=== PATIENT | female | born 1955 | race Caucasian/White ===

== ENCOUNTER 2017-10-13 15:30 | Emergency (ER) | payer MEDICARE, MEDICAID ==
[~2017-10-13] VITALS: Ht 167.6 cm; Wt 113.0 kg
[~2017-10-13 15:30] MED LIST: ALBU2.5V13 NEB; ASPI-611 PO; FERR325T28 PO; FESO8TAB PO; FURO40TA4 PO; IBUP-1986 PO; INSU100C10 SQ; LANTUS SQ; MAGN400T6 PO; OMEP-50 PO; POTA10TA15 PO; PRAM0.253 PO; PREG100C PO; QUET25TA34 PO; SERT100T10 PO; SIMV20TA5 PO; TRAZ-143 PO; VALS80TA2 PO; VALS80TA31 PO
[2017-10-13 16:41] VITALS: BP 132/61
[2017-10-13] MEDS ORDERED: CEPH500C5 PO (16:48)
[2017-10-13] MEDS ORDERED: SULF1TAB49 PO (16:48)
[2017-10-13] MEDS ORDERED: cephalexin 250mg capsule PO ONE (16:50)
[2017-10-13] MEDS ORDERED: sulfamethoxazole/trimethoprim DS (800/160mg) tablet PO ONE (16:50)
== END 2017-10-13 17:17 | disposition home or self-care (01) ==
LOC: ER 15:31
DX: L03.115 Cellulitis of right lower limb (principal); I10 Essential (primary) hypertension; E11.9 Type 2 diabetes mellitus without complications; F12.10 Cannabis abuse, uncomplicated; Z90.710 Acquired absence of both cervix and uterus; Z79.4 Long term (current) use of insulin; Z79.899 Other long term (current) drug therapy; Z79.82 Long term (current) use of aspirin
CPT/HCPCS: 93970; 99284

== ENCOUNTER 2018-07-01 10:35 | Emergency (ER) | payer MEDICARE, MEDICAID ==
[~2018-07-01] VITALS: Ht 167.6 cm; Wt 126.0 kg
[~2018-07-01 10:35] MED LIST changes: +CEPH500C5 PO; -TRAZ-143 PO; +TRAZ-218 PO; -VALS80TA31 PO; +VALS80TA32 PO
[2018-07-01 12:00] LABS: ALANINE AMINOTRANSFERASE 26 U/L (12-78); ALBUMIN 2.9 G/DL (3.4-5.0); ALBUMIN/GLOBULIN RATIO 0.8 (1.1-1.5); ALKALINE PHOSPHATASE 108 IU/L (46-116); ANION GAP 7 (8-16); ASPARTATE AMINO TRANSFERASE 29 U/L (10-37); BLOOD UREA NITROGEN 16 MG/DL (7-18); BUN/CREATININE RATIO 9.8 (6.6-38.0); CALCIUM 8.4 MG/DL (8.5-10.1); CHLORIDE 106 MMOL/L (99-107); CREATININE 1.63 MG/DL (0.40-0.90); GLUCOSE 132 MG/DL (70-104); POTASSIUM 3.9 MMOL/L (3.5-5.1); SODIUM 143 MMOL/L (135-145); TOTAL CARBON DIOXIDE 30.1 MMOL/L (24-32); TOTAL PROTEIN 6.6 G/DL (6.4-8.2); eGFR 32 ML/MIN
[2018-07-01 12:55] VITALS: BP 152/79
== END 2018-07-01 12:50 | disposition home or self-care (01) ==
LOC: ER 10:46
DX: I10 Essential (primary) hypertension (principal); I25.2 Old myocardial infarction; E11.9 Type 2 diabetes mellitus without complications; F12.90 Cannabis use, unspecified, uncomplicated; Z90.710 Acquired absence of both cervix and uterus; Z98.890 Other specified postprocedural states; Z91.040 Latex allergy status; Z79.1 Long term (current) use of non-steroidal anti-inflammatories (NSAID); Z79.4 Long term (current) use of insulin; Z79.899 Other long term (current) drug therapy; E66.01 Morbid (severe) obesity due to excess calories
CPT/HCPCS: 36415; 80053; 84484; 93005; 99284

== ENCOUNTER 2018-09-18 11:27 | Emergency (ER) | payer MEDICARE, MEDICAID ==
[~2018-09-18] VITALS: Ht 165.1 cm; Wt 134.0 kg
[2018-09-18 12:02] LABS: BASOPHILS # (AUTO) 0.1 X10'3 (0-0.2); BASOPHILS % (AUTO) 0.9 % (0-1); EOSINOPHILS # (AUTO) 0.2 X10'3 (0-0.9); EOSINOPHILS % (AUTO) 2.1 % (0-6); HEMATOCRIT 35.2 % (35.0-45.0); HEMOGLOBIN 12.2 g/dl (12.0-16.0); LYMPHOCYTES # (AUTO) 1.4 X10'3 (1.1-4.8); LYMPHOCYTES % (AUTO) 18.3 % (21-51); MEAN CORPUSCULAR HEMOGLOBIN 30.8 PG (27.0-31.0); MEAN CORPUSCULAR HGB CONC 34.6 g/dL (33.0-36.5); MEAN PLATELET VOLUME 8.7 FL (7.4-10.4); MONOCYTES # (AUTO) 0.4 X10'3 (0-0.9); MONOCYTES % (AUTO) 4.7 % (2-12); NEUTROPHILS # (AUTO) 5.6 X10'3 (1.8-7.7); PLATELET COUNT 176 X10'3 (140-440); RED BLOOD COUNT 3.95 X10'6 (4.20-5.60); RED CELL DISTRIBUTION WIDTH 13.8 % (11.5-14.5); WHITE BLOOD COUNT 7.5 X10'3 (4.5-11.0)
[2018-09-18 12:14] LABS: ALANINE AMINOTRANSFERASE 19 U/L (12-78); ALBUMIN 2.8 G/DL (3.4-5.0); ALBUMIN/GLOBULIN RATIO 0.7 (1.1-1.5); ALKALINE PHOSPHATASE 93 IU/L (46-116); ANION GAP 3 (8-16); ASPARTATE AMINO TRANSFERASE 28 U/L (10-37); BLOOD UREA NITROGEN 17 MG/DL (7-18); BUN/CREATININE RATIO 9.8 (6.6-38.0); CALCIUM 8.8 MG/DL (8.5-10.1); CHLORIDE 110 MMOL/L (99-107); CREATININE 1.74 MG/DL (0.40-0.90); GLUCOSE 84 MG/DL (70-104); POTASSIUM 3.8 MMOL/L (3.5-5.1); SODIUM 144 MMOL/L (135-145); TOTAL PROTEIN 6.6 G/DL (6.4-8.2); eGFR 30 ML/MIN
[2018-09-18 12:33] LABS: INR 1.1 INR; PROTHROMBIN TIME 11.3 SECONDS (9.0-12.0)
[2018-09-18] MEDS ORDERED: morphine 4 MG/ML inj SYRINge IV PRN (12:55)
[2018-09-18] MEDS ORDERED: ondansetron/PF 4mg/2ml inj IV ONE (12:55)
[2018-09-18] MEDS ORDERED: normal saline 1000ML IV soln IVB ONE (12:55)
[2018-09-18 13:11] LABS: URINE HCG NEGATIVE (NEG)
[2018-09-18 13:14] LABS: CLARITY,URINE CLEAR (Clear); COLOR,URINE YELLOW (Yellow); GLUCOSE, URINE NEGATIVE (Neg); KETONES,URINE NEGATIVE (Neg); LEUKOCYTE ESTERASE ,URINE NEGATIVE (Neg); NITRITES, URINE NEGATIVE (Neg); OCCULT BLOOD,URINE MODERATE (Neg); PROTEIN,URINE 100 mg/dl (Neg); UROBILINOGEN,URINE 0.2 E.U/dL (0.2-1.0)
[2018-09-18 13:32] LABS: UA COLLECTION TYPE CLN CATCH MIDSTREAM
[2018-09-18 13:33] LABS: RBC,URINE 0-2 /HPF (0-2); WBC,URINE 0-4 /HPF (0-4)
[2018-09-18 13:34] LABS: BACTERIA,URINE FEW /HPF (Neg); SQUAMOUS EPITHELIAL CELL,UR FEW /LPF (FEW)
--- NOTE | 2018-09-18 13:47 | NUR ---
Spoke with Dr. Wilburn regarding 1L NS fluid bolus ordered for patient due to CT abd/pelvis indicating that patient had increased fluid in abd cavity. He stated to administer 250 mL bolus NS IV now, not the full 1 L NS.
[2018-09-18] MEDS ORDERED: LIDOcaine 1% w/epiNEPHrine 1:200,000 30ml vial IM ONE (14:10)
[2018-09-18] MEDS ORDERED: SPIR50TA5 PO (14:44)
[2018-09-18] MEDS ORDERED: HYDR-3965 PO (14:47)
[2018-09-18 15:15] VITALS: BP 139/68
[2018-09-18 15:51] LABS: BF MESOTHELIAL CELLS FEW; BF RBC COUNT 111 /CU MM; BF WBC COUNT 149 /CU MM (0-1000); BFAPPEAR HAZY; BFCOLOR YELLOW; BFVOLUME 9 ML; LYMPHOCYTES,BODY FLUID 69 %; MONOCYTES,BODY FLUID 14 %; NEUTROPHILS,BODY FLUID 17 %
== END 2018-09-18 15:18 | disposition home or self-care (01) ==
LOC: ER 11:27
DX: R18.8 Other ascites (principal); K74.60 Unspecified cirrhosis of liver; I10 Essential (primary) hypertension; J44.9 Chronic obstructive pulmonary disease, unspecified; E11.9 Type 2 diabetes mellitus without complications; F12.90 Cannabis use, unspecified, uncomplicated; Z90.710 Acquired absence of both cervix and uterus; Z91.040 Latex allergy status; Z79.82 Long term (current) use of aspirin; Z79.4 Long term (current) use of insulin; Z79.899 Other long term (current) drug therapy
CPT/HCPCS: 36415; 74176; 80053; 81001; 81025; 85025; 85610; 89051; 96374; 96375; 99284; J2270; J2405; J3490; J7030

== ENCOUNTER 2019-01-03 11:29 | Emergency (ER) | payer MEDICARE, MEDICAID ==
[~2019-01-03] VITALS: Ht 167.6 cm; Wt 124.8 kg
[~2019-01-03 11:29] MED LIST changes: +AMLO10TA PO; +CARI3CAP PO; -CEPH500C5 PO; +CLON0.5T12 PO; +CLOT15CR5 TOP; -FESO8TAB PO; +FLUT100D2 INH; +GABA-532 PO; +INSU100I31 SQ; +LAMO100T89 PO; -LANTUS SQ; +LOSA100T57 PO; +MAGN400T28 PO; -MAGN400T6 PO; +MUPI22OI30 TP; +PRAM0.252 PO; -PRAM0.253 PO; -PREG100C PO; -QUET25TA34 PO; +SPIR100T5 PO; -TRAZ-218 PO; +TRAZ-251 PO; -VALS80TA2 PO; -VALS80TA32 PO
--- NOTE | 2019-01-03 11:38 | NUR ---
REVIEWED PT MEDICATIONS AND PT DOES NOT TAKE BLOOD THINNER.
[2019-01-03 12:08] LABS: BASOPHILS # (AUTO) 0.1 X10'3 (0-0.2); BASOPHILS % (AUTO) 0.9 % (0-1); EOSINOPHILS # (AUTO) 0.2 X10'3 (0-0.9); EOSINOPHILS % (AUTO) 2.2 % (0-6); HEMATOCRIT 38.6 % (35.0-45.0); HEMOGLOBIN 13.2 g/dl (12.0-16.0); LYMPHOCYTES # (AUTO) 1.2 X10'3 (1.1-4.8); LYMPHOCYTES % (AUTO) 15.5 % (21-51); MEAN CORPUSCULAR HEMOGLOBIN 30.8 PG (27.0-31.0); MEAN CORPUSCULAR HGB CONC 34.2 g/dL (33.0-36.5); MEAN CORPUSCULAR VOLUME 89.9 FL (78-98); MEAN PLATELET VOLUME 8.7 FL (7.4-10.4); MONOCYTES # (AUTO) 0.4 X10'3 (0-0.9); MONOCYTES % (AUTO) 5.3 % (2-12); NEUTROPHILS # (AUTO) 5.9 X10'3 (1.8-7.7); NEUTROPHILS % (AUTO) 76.1 % (42-75); PLATELET COUNT 184 X10'3 (140-440); RED BLOOD COUNT 4.29 X10'6 (4.20-5.60); RED CELL DISTRIBUTION WIDTH 13.1 % (11.5-14.5); WHITE BLOOD COUNT 7.7 X10'3 (4.5-11.0)
[2019-01-03 12:21] LABS: CLARITY,URINE SLIGHTLY CLOUDY (Clear); COLOR,URINE YELLOW (Yellow); GLUCOSE, URINE NEGATIVE (Neg); KETONES,URINE NEGATIVE (Neg); LEUKOCYTE ESTERASE ,URINE NEGATIVE (Neg); NITRITES, URINE NEGATIVE (Neg); OCCULT BLOOD,URINE LARGE (Neg); PROTEIN,URINE >=300 mg/dl (Neg); UROBILINOGEN,URINE 0.2 E.U/dL (0.2-1.0)
[2019-01-03 12:21] LABS: ALANINE AMINOTRANSFERASE 21 U/L (12-78); ALBUMIN 3.2 G/DL (3.4-5.0); ALBUMIN/GLOBULIN RATIO 0.7 (1.1-1.5); ALKALINE PHOSPHATASE 88 IU/L (46-116); ANION GAP 10 (8-16); ASPARTATE AMINO TRANSFERASE 27 U/L (10-37); BLOOD UREA NITROGEN 19 MG/DL (7-18); BUN/CREATININE RATIO 10.7 (6.6-38.0); CALCIUM 8.9 MG/DL (8.5-10.1); CHLORIDE 111 MMOL/L (99-107); CREATININE 1.77 MG/DL (0.40-0.90); GLUCOSE 107 MG/DL (70-104); LIPASE 142 U/L (73-393); POTASSIUM 4.2 MMOL/L (3.5-5.1); SODIUM 143 MMOL/L (135-145); TOTAL CARBON DIOXIDE 22.2 MMOL/L (24-32); TOTAL PROTEIN 7.7 G/DL (6.4-8.2); eGFR 29 ML/MIN
[2019-01-03 12:22] LABS: URINE HCG NEGATIVE (NEG)
[2019-01-03 12:27] LABS: UA COLLECTION TYPE CLN CATCH MIDSTREAM
[2019-01-03 12:28] LABS: MUCUS STRANDS FEW /LPF (Neg); SQUAMOUS EPITHELIAL CELL,UR MANY /LPF (FEW)
[2019-01-03 12:29] LABS: BACTERIA,URINE 2+ /HPF (Neg); WBC,URINE 0-4 /HPF (0-4)
[2019-01-03] MEDS ORDERED: morphine 4 MG/ML inj SYRINge IV ONE (13:05)
--- NOTE | 2019-01-03 13:51 | NUR ---
waiting on IR for paracentesis
--- NOTE | 2019-01-03 14:35 | NUR ---
PT FEELING BETTER. CALLED IR AGAIN AND THEY SAID THEY ARE DROPPING OFF A PT AND THEN WILL COME GET THIS PT.
[2019-01-03 14:56] VITALS: BP 183/93
--- NOTE | 2019-01-03 15:05 | NUR ---
IR AT BEDSIDE TO DO PARACENTESIS
[2019-01-03 15:48] VITALS: BP 186/71
[2019-01-03] MEDS ORDERED: albumin (human) 25% 100 ML IV solution IV ONE (15:50)
--- NOTE | 2019-01-03 16:08 | NUR ---
pt had 10.9liters drained out. pt on albumin
[2019-01-03 16:46] VITALS: BP 179/73
== END 2019-01-03 17:07 | disposition home or self-care (01) ==
LOC: ER 11:31
DX: R18.8 Other ascites (principal); K74.60 Unspecified cirrhosis of liver; K64.9 Unspecified hemorrhoids; I10 Essential (primary) hypertension; J44.9 Chronic obstructive pulmonary disease, unspecified; E11.9 Type 2 diabetes mellitus without complications; F41.9 Anxiety disorder, unspecified; F32.9 Major depressive disorder, single episode, unspecified; F12.90 Cannabis use, unspecified, uncomplicated; Z91.040 Latex allergy status; Z79.82 Long term (current) use of aspirin; Z79.4 Long term (current) use of insulin; Z90.710 Acquired absence of both cervix and uterus; Z98.890 Other specified postprocedural states; Z79.899 Other long term (current) drug therapy
CPT/HCPCS: 36415; 49083; 80053; 81001; 81025; 83690; 85025; 85610; 96365; 96375; 99285; J2270; P9047; 49082; 96374

== ENCOUNTER 2019-02-01 09:00 | Day surgery (SDC) | payer MEDICARE, MEDICAID ==
[2019-02-01] VITALS (15 sets, daily range): BP systolic 142–179; BP diastolic 69–99
[~2019-02-01] VITALS: Ht 167.6 cm; Wt 124.7 kg
[2019-02-01] MEDS ORDERED: normal saline 1000ml 1,000 ML IV PRN (10:50)
[2019-02-01] MEDS: albumin 25% 100mL bottle x 1 IV PRN ×3 (11:54→13:51)
[2019-02-01] MEDS ORDERED: oxyCODONE/APAP 5-325mg tablet PO ONE (13:40)
== END 2019-02-01 14:55 | disposition home or self-care (01) ==
LOC: SSTAY O 09:00
PROVIDERS: ATTEND Radiology Vascular & Interventional Radiology
DX: K70.31 Alcoholic cirrhosis of liver with ascites (principal); N18.9 Chronic kidney disease, unspecified; E87.5 Hyperkalemia; Z91.040 Latex allergy status; Z88.8 Allergy status to other drugs, medicaments and biological substances; Z79.4 Long term (current) use of insulin; Z79.899 Other long term (current) drug therapy; Z79.82 Long term (current) use of aspirin
CPT/HCPCS: 49083; C1729; J7030; P9047

== ENCOUNTER 2019-02-25 08:28 | Day surgery (SDC) | payer MEDICARE, MEDICAID ==
[2019-02-25] VITALS (9 sets, daily range): BP systolic 91–172; BP diastolic 36–89
[~2019-02-25] VITALS: Ht 167.6 cm; Wt 128.2 kg
[2019-02-25] MEDS ORDERED: normal saline 1000ml 1,000 ML IV PRN (08:50)
[2019-02-25] MEDS: albumin 25% 100mL bottle x 1 IV PRN ×2 (11:09→11:11)
== END 2019-02-25 12:15 | disposition home or self-care (01) ==
LOC: SSTAY O 08:28
PROVIDERS: ATTEND Radiology Diagnostic Radiology
DX: R18.8 Other ascites (principal); I10 Essential (primary) hypertension; J44.9 Chronic obstructive pulmonary disease, unspecified; E11.9 Type 2 diabetes mellitus without complications; F41.9 Anxiety disorder, unspecified; F32.9 Major depressive disorder, single episode, unspecified; Z90.710 Acquired absence of both cervix and uterus; Z98.890 Other specified postprocedural states; Z91.040 Latex allergy status; F12.90 Cannabis use, unspecified, uncomplicated; Z79.899 Other long term (current) drug therapy; Z79.82 Long term (current) use of aspirin
CPT/HCPCS: 49083; C1729; J7030; P9047

== ENCOUNTER 2019-03-21 08:20 | Day surgery (SDC) | payer MEDICARE, MEDICAID ==
[~2019-03-21] VITALS: Ht 167.6 cm; Wt 125.8 kg
[~2019-03-21 08:20] MED LIST changes: -CLON0.5T12 PO; +CLON0.5T4 PO; +LAMO100T PO; -LAMO100T89 PO; -POTA10TA15 PO
[2019-03-21] MEDS ORDERED: normal saline 1000ml 1,000 ML IV PRN (08:45)
[2019-03-21] MEDS ORDERED: LIDOcaine 1% 30ml preserv. free vial IJ STA (09:14)
[2019-03-21 09:36] VITALS: BP 181/77
[2019-03-21 10:14] VITALS: BP 158/91
[2019-03-21 10:30] VITALS: BP 166/83
[2019-03-21 10:45] VITALS: BP 175/82
[2019-03-21 11:00] VITALS: BP 173/90
[2019-03-21] MEDS: albumin 25% 100mL bottle x 1 IV PRN ×2 (11:00→11:30)
[2019-03-21 11:15] VITALS: BP 171/84
== END 2019-03-21 11:55 | disposition home or self-care (01) ==
LOC: SSTAY O 08:20
PROVIDERS: ATTEND Radiology Vascular & Interventional Radiology
DX: R18.8 Other ascites (principal); I10 Essential (primary) hypertension; J44.9 Chronic obstructive pulmonary disease, unspecified; E11.9 Type 2 diabetes mellitus without complications; F41.9 Anxiety disorder, unspecified; F32.9 Major depressive disorder, single episode, unspecified; Z90.710 Acquired absence of both cervix and uterus; Z98.890 Other specified postprocedural states; F12.90 Cannabis use, unspecified, uncomplicated; Z91.040 Latex allergy status; Z79.4 Long term (current) use of insulin; Z79.899 Other long term (current) drug therapy; Z79.82 Long term (current) use of aspirin
CPT/HCPCS: 49083; C1729; J2001; J7030; P9047

== ENCOUNTER 2019-04-23 08:07 | Day surgery (SDC) | payer MEDICARE, MEDICAID ==
[2019-04-23] VITALS (10 sets, daily range): BP systolic 131–157; BP diastolic 58–106
[~2019-04-23] VITALS: Ht 167.6 cm; Wt 124.6 kg
[~2019-04-23 08:07] MED LIST changes: -CLOT15CR5 TOP; -IBUP-1986 PO
[2019-04-23] MEDS ORDERED: normal saline 1000ml 1,000 ML IV PRN (09:00)
[2019-04-23] MEDS ORDERED: FLU VACC QS2019-20 36MOS UP/PF 60 MCG/0.5 ML SYRINGE IMVAC ONE (09:20)
[2019-04-23] MEDS ORDERED: FLU VACC QS 2019-20 (6 MOS UP) 60 MCG/0.5 ML VIAL IMVAC ONE (09:55)
[2019-04-23] MEDS: albumin 25% 100mL bottle x 1 IV PRN ×2 (10:30→10:31)
== END 2019-04-23 12:10 | disposition home or self-care (01) ==
LOC: SSTAY O 08:07
PROVIDERS: ATTEND Radiology Vascular & Interventional Radiology
DX: R18.8 Other ascites (principal); Z23 Encounter for immunization; F12.90 Cannabis use, unspecified, uncomplicated; I10 Essential (primary) hypertension; J44.9 Chronic obstructive pulmonary disease, unspecified; E11.9 Type 2 diabetes mellitus without complications; F41.9 Anxiety disorder, unspecified; F32.9 Major depressive disorder, single episode, unspecified; Z91.040 Latex allergy status; Z79.82 Long term (current) use of aspirin; Z79.899 Other long term (current) drug therapy; Z98.890 Other specified postprocedural states; Z90.710 Acquired absence of both cervix and uterus
CPT/HCPCS: 49083; C1729; G0008; J7030; P9047; Q2037

== ENCOUNTER 2019-06-11 08:09 | Day surgery (SDC) | payer MEDICARE, MEDICAID ==
[2019-06-11] VITALS (10 sets, daily range): BP systolic 141–179; BP diastolic 64–81
[~2019-06-11] VITALS: Ht 167.6 cm; Wt 130.0 kg
[2019-06-11] MEDS ORDERED: normal saline 1000ml 1,000 ML IV PRN (08:40)
[2019-06-11] MEDS: albumin 25% 100mL bottle x 1 IV PRN ×3 (09:34→10:16)
== END 2019-06-11 11:40 | disposition home or self-care (01) ==
LOC: SSTAY O 08:09
PROVIDERS: ATTEND Radiology Vascular & Interventional Radiology
DX: R18.8 Other ascites (principal); Z91.040 Latex allergy status
CPT/HCPCS: 49083; C1729; J7030; P9047

== ENCOUNTER 2019-07-18 07:08 | Day surgery (SDC) | payer MEDICARE, MEDICAID ==
[~2019-07-18] VITALS: Ht 167.6 cm; Wt 126.9 kg
[2019-07-18] VITALS (11 sets, daily range): BP systolic 125–168; BP diastolic 55–88
[~2019-07-18 07:08] MED LIST changes: -LOSA100T57 PO
[2019-07-18] MEDS ORDERED: normal saline 1000ml 1,000 ML IV PRN (07:40)
[2019-07-18] MEDS: albumin 25% 100mL bottle x 1 IV PRN ×3 (09:47→11:12)
== END 2019-07-18 11:50 | disposition home or self-care (01) ==
LOC: SSTAY O 07:08
PROVIDERS: ATTEND Radiology Vascular & Interventional Radiology
DX: R18.8 Other ascites (principal); I48.19 Other persistent atrial fibrillation; I10 Essential (primary) hypertension; J44.9 Chronic obstructive pulmonary disease, unspecified; E11.9 Type 2 diabetes mellitus without complications; F41.9 Anxiety disorder, unspecified; F32.9 Major depressive disorder, single episode, unspecified; F12.90 Cannabis use, unspecified, uncomplicated; Z91.040 Latex allergy status; Z88.8 Allergy status to other drugs, medicaments and biological substances; Z90.710 Acquired absence of both cervix and uterus; Z98.890 Other specified postprocedural states; Z79.4 Long term (current) use of insulin; Z79.899 Other long term (current) drug therapy; Z79.82 Long term (current) use of aspirin
CPT/HCPCS: 49083; C1729; P9047

== ENCOUNTER 2019-08-06 10:48 | Emergency (ER) | payer MEDICARE, MEDICAID ==
[~2019-08-06] VITALS: Ht 167.6 cm; Wt 114.1 kg
[2019-08-06 13:46] VITALS: BP 145/54
== END 2019-08-06 13:49 | disposition home or self-care (01) ==
LOC: ER 10:49
DX: M17.11 Unilateral primary osteoarthritis, right knee (principal); I10 Essential (primary) hypertension; J44.9 Chronic obstructive pulmonary disease, unspecified; E11.9 Type 2 diabetes mellitus without complications; F41.9 Anxiety disorder, unspecified; F32.9 Major depressive disorder, single episode, unspecified; F12.90 Cannabis use, unspecified, uncomplicated; Z98.890 Other specified postprocedural states; Z90.710 Acquired absence of both cervix and uterus; Z91.040 Latex allergy status; Z88.8 Allergy status to other drugs, medicaments and biological substances; Z79.82 Long term (current) use of aspirin; Z79.4 Long term (current) use of insulin; Z79.899 Other long term (current) drug therapy
CPT/HCPCS: 29505; 73564; 99283

== ENCOUNTER 2019-08-19 08:06 | Day surgery (SDC) | payer MEDICARE, MEDICAID ==
[~2019-08-19] VITALS: Ht 167.6 cm; Wt 122.0 kg
[2019-08-19] VITALS (11 sets, daily range): BP systolic 121–151; BP diastolic 57–86
[2019-08-19] MEDS ORDERED: normal saline 1000ml 1,000 ML IV PRN (08:25)
[2019-08-19] MEDS ORDERED: LACT10SO PO (08:26)
[2019-08-19] MEDS ORDERED: SODI454P9 PO (08:26)
[2019-08-19] MEDS: albumin 25% 100mL bottle x 1 IV PRN ×2 (10:24→11:19)
== END 2019-08-19 12:25 | disposition home or self-care (01) ==
LOC: SSTAY O 08:06
PROVIDERS: ATTEND Radiology Diagnostic Radiology
DX: R18.8 Other ascites (principal); I10 Essential (primary) hypertension; J44.9 Chronic obstructive pulmonary disease, unspecified; E11.9 Type 2 diabetes mellitus without complications; F41.9 Anxiety disorder, unspecified; F32.9 Major depressive disorder, single episode, unspecified; F12.90 Cannabis use, unspecified, uncomplicated; Z88.8 Allergy status to other drugs, medicaments and biological substances; Z91.040 Latex allergy status; Z98.890 Other specified postprocedural states; Z90.710 Acquired absence of both cervix and uterus; Z79.899 Other long term (current) drug therapy; Z79.82 Long term (current) use of aspirin
CPT/HCPCS: 49083; C1729; P9047

== ENCOUNTER 2019-09-27 06:10 | Day surgery (SDC) | payer MEDICARE, MEDICAID ==
[~2019-09-27] VITALS: Ht 167.6 cm; Wt 119.0 kg
[2019-09-27] VITALS (10 sets, daily range): BP systolic 141–158; BP diastolic 57–69
[~2019-09-27 06:10] MED LIST changes: -CLON0.5T4 PO; -INSU100C10 SQ; +LACT10SO PO; +SODI454P9 PO
[2019-09-27] MEDS ORDERED: normal saline 1000ml 1,000 ML IV PRN (06:35)
[2019-09-27] MEDS: albumin 25% 100mL bottle x 1 IV PRN ×3 (08:36→09:31)
== END 2019-09-27 10:50 | disposition home or self-care (01) ==
LOC: U 06:10 → MED 3N 06:10 → U 10:50
PROVIDERS: ATTEND Radiology Vascular & Interventional Radiology
DX: R18.8 Other ascites (principal); I10 Essential (primary) hypertension; J44.9 Chronic obstructive pulmonary disease, unspecified; E11.9 Type 2 diabetes mellitus without complications; F41.9 Anxiety disorder, unspecified; F12.90 Cannabis use, unspecified, uncomplicated; F32.9 Major depressive disorder, single episode, unspecified; Z90.710 Acquired absence of both cervix and uterus; Z98.890 Other specified postprocedural states; Z79.899 Other long term (current) drug therapy; Z88.8 Allergy status to other drugs, medicaments and biological substances; Z91.040 Latex allergy status
CPT/HCPCS: 49083; C1729; P9047

== ENCOUNTER 2019-10-24 06:03 | Day surgery (SDC) | payer MEDICARE, MEDICAID ==
[~2019-10-24] VITALS: Ht 167.6 cm; Wt 123.1 kg
[2019-10-24] VITALS (9 sets, daily range): BP systolic 127–175; BP diastolic 60–78
[~2019-10-24 06:03] MED LIST changes: -ALBU2.5V13 NEB; -FLUT100D2 INH
[2019-10-24] MEDS ORDERED: normal saline 1000ml 1,000 ML IV PRN (06:30)
[2019-10-24] MEDS: albumin 25% 100mL bottle x 1 IV PRN ×3 (08:47→10:17)
== END 2019-10-24 11:00 | disposition home or self-care (01) ==
LOC: SSTAY O 06:03
PROVIDERS: ATTEND Radiology Diagnostic Radiology
DX: R18.8 Other ascites (principal); J44.9 Chronic obstructive pulmonary disease, unspecified; I10 Essential (primary) hypertension; E11.9 Type 2 diabetes mellitus without complications; F41.9 Anxiety disorder, unspecified; F32.9 Major depressive disorder, single episode, unspecified; Z90.710 Acquired absence of both cervix and uterus; Z98.890 Other specified postprocedural states; F12.90 Cannabis use, unspecified, uncomplicated; Z91.040 Latex allergy status; Z79.899 Other long term (current) drug therapy
CPT/HCPCS: 49083; C1729; P9047

== ENCOUNTER 2019-11-12 06:54 | Day surgery (SDC) | payer MEDICARE, MEDICAID ==
[2019-11-12] VITALS (8 sets, daily range): BP systolic 95–143; BP diastolic 37–66
[~2019-11-12] VITALS: Ht 167.6 cm; Wt 121.0 kg
[2019-11-12] MEDS ORDERED: normal saline 1000ml 1,000 ML IV PRN (07:25)
[2019-11-12] MEDS: albumin 25% 100mL bottle x 1 IV PRN ×2 (08:25→09:23)
== END 2019-11-12 10:15 | disposition home or self-care (01) ==
LOC: SSTAY O 06:54
PROVIDERS: ATTEND Radiology Diagnostic Radiology
DX: R18.8 Other ascites (principal); I10 Essential (primary) hypertension; F41.9 Anxiety disorder, unspecified; F32.9 Major depressive disorder, single episode, unspecified; E11.9 Type 2 diabetes mellitus without complications; J44.9 Chronic obstructive pulmonary disease, unspecified; Z98.890 Other specified postprocedural states; Z90.710 Acquired absence of both cervix and uterus; F12.90 Cannabis use, unspecified, uncomplicated; Z91.040 Latex allergy status; Z88.8 Allergy status to other drugs, medicaments and biological substances; Z79.899 Other long term (current) drug therapy; Z79.82 Long term (current) use of aspirin
CPT/HCPCS: 49083; P9047

== ENCOUNTER 2019-12-16 07:44 | Day surgery (SDC) | payer MEDICARE, MEDICAID ==
[~2019-12-16] VITALS: Ht 167.6 cm; Wt 54.9 kg
[2019-12-16] VITALS (10 sets, daily range): BP systolic 112–165; BP diastolic 50–99
[~2019-12-16 07:44] MED LIST changes: -MUPI22OI30 TP
[2019-12-16] MEDS ORDERED: normal saline 1000ml 1,000 ML IV PRN (08:00)
[2019-12-16] MEDS: albumin 25% 100mL bottle x 1 IV PRN ×2 (08:58→09:23)
== END 2019-12-16 10:50 | disposition home or self-care (01) ==
LOC: SSTAY O 07:44
PROVIDERS: ATTEND Radiology Vascular & Interventional Radiology
DX: R18.8 Other ascites (principal); I10 Essential (primary) hypertension; J44.9 Chronic obstructive pulmonary disease, unspecified; E11.9 Type 2 diabetes mellitus without complications; F41.9 Anxiety disorder, unspecified; F32.9 Major depressive disorder, single episode, unspecified; Z90.710 Acquired absence of both cervix and uterus; Z98.890 Other specified postprocedural states; F12.90 Cannabis use, unspecified, uncomplicated; Z91.040 Latex allergy status; Z88.8 Allergy status to other drugs, medicaments and biological substances; Z79.899 Other long term (current) drug therapy; Z79.4 Long term (current) use of insulin
CPT/HCPCS: 49083; P9047

== ENCOUNTER 2020-01-10 07:15 | Day surgery (SDC) | payer MEDICARE, MEDICAID ==
[~2020-01-10] VITALS: Ht 167.6 cm; Wt 121.2 kg
[2020-01-10 07:30] VITALS: BP 147/69
[2020-01-10] MEDS ORDERED: normal saline 1000ml 1,000 ML IV PRN (07:35)
[2020-01-10] MEDS: albumin 25% 100mL bottle x 1 IV PRN ×2 (09:23→10:53)
[2020-01-10 10:11] VITALS: BP 140/70
[2020-01-10 10:30] VITALS: BP 179/76
[2020-01-10 11:00] VITALS: BP 154/68
[2020-01-10 11:15] VITALS: BP 159/72
[2020-01-10 11:30] VITALS: BP 153/65
== END 2020-01-10 11:50 | disposition home or self-care (01) ==
LOC: SSTAY O 07:15
PROVIDERS: ATTEND Radiology Vascular & Interventional Radiology
DX: R18.8 Other ascites (principal); I10 Essential (primary) hypertension; J44.9 Chronic obstructive pulmonary disease, unspecified; E11.9 Type 2 diabetes mellitus without complications; F41.9 Anxiety disorder, unspecified; F32.9 Major depressive disorder, single episode, unspecified; Z91.040 Latex allergy status; Z88.8 Allergy status to other drugs, medicaments and biological substances; Z90.710 Acquired absence of both cervix and uterus; Z98.890 Other specified postprocedural states; F12.90 Cannabis use, unspecified, uncomplicated; Z79.899 Other long term (current) drug therapy; Z79.82 Long term (current) use of aspirin
CPT/HCPCS: 49083; P9047

== ENCOUNTER 2020-02-04 06:49 | Day surgery (SDC) | payer MEDICARE, MEDICAID ==
[~2020-02-04] VITALS: Ht 167.6 cm; Wt 123.1 kg
[2020-02-04] VITALS (12 sets, daily range): BP systolic 161–197; BP diastolic 76–112
[2020-02-04] MEDS ORDERED: normal saline 1000ml 1,000 ML IV PRN (07:05)
[2020-02-04] MEDS: albumin 25% 100mL bottle x 1 IV PRN ×3 (08:37→10:03)
== END 2020-02-04 11:00 | disposition home or self-care (01) ==
LOC: SSTAY O 06:49
PROVIDERS: ATTEND Radiology Vascular & Interventional Radiology
DX: R18.8 Other ascites (principal); I10 Essential (primary) hypertension; J44.9 Chronic obstructive pulmonary disease, unspecified; F41.9 Anxiety disorder, unspecified; F32.9 Major depressive disorder, single episode, unspecified; E11.10 Type 2 diabetes mellitus with ketoacidosis without coma; E66.01 Morbid (severe) obesity due to excess calories; Z68.41 Body mass index [BMI] 40.0-44.9, adult; K74.60 Unspecified cirrhosis of liver; Z86.19 Personal history of other infectious and parasitic diseases; Z98.890 Other specified postprocedural states; Z90.710 Acquired absence of both cervix and uterus; F12.90 Cannabis use, unspecified, uncomplicated; Z91.040 Latex allergy status; Z88.8 Allergy status to other drugs, medicaments and biological substances; Z79.4 Long term (current) use of insulin; Z79.82 Long term (current) use of aspirin; Z79.899 Other long term (current) drug therapy
CPT/HCPCS: 49083; P9047

== ENCOUNTER 2020-03-02 07:12 | Day surgery (SDC) | payer MEDICARE, MEDICAID ==
[~2020-03-02] VITALS: Ht 167.6 cm; Wt 121.9 kg
[2020-03-02] VITALS (8 sets, daily range): BP systolic 131–157; BP diastolic 52–88
--- NOTE | 2020-03-02 08:07 | NUR ---
pt takes aspirin daily. Addendum: 03/02/20 at 0811 by Stacia Penn RN Amended: Links added.
[2020-03-02] MEDS: albumin 25% 100mL bottle x 1 IV PRN ×3 (09:06→10:59)
== END 2020-03-02 11:10 | disposition home or self-care (01) ==
LOC: SSTAY O 07:12
PROVIDERS: ATTEND Radiology Vascular & Interventional Radiology
DX: R18.8 Other ascites (principal); I10 Essential (primary) hypertension; J44.9 Chronic obstructive pulmonary disease, unspecified; E11.9 Type 2 diabetes mellitus without complications; F41.9 Anxiety disorder, unspecified; F32.9 Major depressive disorder, single episode, unspecified; E66.01 Morbid (severe) obesity due to excess calories; Z68.41 Body mass index [BMI] 40.0-44.9, adult; Z86.19 Personal history of other infectious and parasitic diseases; K74.60 Unspecified cirrhosis of liver; F12.90 Cannabis use, unspecified, uncomplicated; Z91.040 Latex allergy status; Z88.8 Allergy status to other drugs, medicaments and biological substances; Z79.899 Other long term (current) drug therapy; Z79.82 Long term (current) use of aspirin
CPT/HCPCS: 49083; P9047

== ENCOUNTER 2020-03-20 06:31 | Day surgery (SDC) | payer MEDICARE, MEDICAID ==
[~2020-03-20] VITALS: Ht 167.6 cm; Wt 123.9 kg
[2020-03-20] VITALS (15 sets, daily range): BP systolic 125–138; BP diastolic 57–84
[2020-03-20] MEDS ORDERED: normal saline 1000ml 1,000 ML IV PRN (07:00)
[2020-03-20] MEDS: albumin 25% 100mL bottle x 1 IV PRN ×2 (08:50→10:18)
== END 2020-03-20 11:55 | disposition home or self-care (01) ==
LOC: SSTAY O 06:31
PROVIDERS: ATTEND Radiology Vascular & Interventional Radiology
DX: R18.8 Other ascites (principal); I10 Essential (primary) hypertension; J44.9 Chronic obstructive pulmonary disease, unspecified; F41.9 Anxiety disorder, unspecified; F32.9 Major depressive disorder, single episode, unspecified; E66.01 Morbid (severe) obesity due to excess calories; Z68.41 Body mass index [BMI] 40.0-44.9, adult; E11.9 Type 2 diabetes mellitus without complications; Z86.19 Personal history of other infectious and parasitic diseases; F12.90 Cannabis use, unspecified, uncomplicated; Z90.710 Acquired absence of both cervix and uterus; Z98.890 Other specified postprocedural states; Z91.040 Latex allergy status; Z88.8 Allergy status to other drugs, medicaments and biological substances; Z79.899 Other long term (current) drug therapy; Z79.82 Long term (current) use of aspirin
CPT/HCPCS: 49083; P9047

== ENCOUNTER 2020-04-09 06:36 | Day surgery (SDC) | payer MEDICARE, MEDICAID ==
[~2020-04-09] VITALS: Ht 167.6 cm; Wt 129.4 kg
[2020-04-09] VITALS (13 sets, daily range): BP systolic 134–179; BP diastolic 52–93
[2020-04-09] MEDS: albumin 25% 100mL bottle x 1 IV PRN ×3 (08:43→10:56)
== END 2020-04-09 12:00 | disposition home or self-care (01) ==
LOC: SSTAY O 06:36
PROVIDERS: ATTEND Radiology Vascular & Interventional Radiology
DX: R18.8 Other ascites (principal); Z91.040 Latex allergy status; Z86.19 Personal history of other infectious and parasitic diseases; K74.60 Unspecified cirrhosis of liver; I10 Essential (primary) hypertension; J44.9 Chronic obstructive pulmonary disease, unspecified; E11.9 Type 2 diabetes mellitus without complications; F32.9 Major depressive disorder, single episode, unspecified; F41.9 Anxiety disorder, unspecified; E66.01 Morbid (severe) obesity due to excess calories; Z68.42 Body mass index [BMI] 45.0-49.9, adult; Z90.710 Acquired absence of both cervix and uterus; Z98.890 Other specified postprocedural states; F12.90 Cannabis use, unspecified, uncomplicated; Z88.8 Allergy status to other drugs, medicaments and biological substances; Z79.899 Other long term (current) drug therapy
CPT/HCPCS: 49083; P9047

== ENCOUNTER 2020-04-30 07:12 | Day surgery (SDC) | payer MEDICARE, MEDICAID ==
[~2020-04-30] VITALS: Ht 167.6 cm; Wt 125.4 kg
[2020-04-30] VITALS (10 sets, daily range): BP systolic 150–164; BP diastolic 64–88
[2020-04-30] MEDS ORDERED: albumin 25% 100mL bottle x 1 IV PRN (07:40)
== END 2020-04-30 11:15 | disposition home or self-care (01) ==
LOC: SSTAY O 07:12
PROVIDERS: ATTEND Radiology Vascular & Interventional Radiology
DX: R18.8 Other ascites (principal); K74.60 Unspecified cirrhosis of liver; I10 Essential (primary) hypertension; J44.9 Chronic obstructive pulmonary disease, unspecified; F41.9 Anxiety disorder, unspecified; F32.9 Major depressive disorder, single episode, unspecified; E11.10 Type 2 diabetes mellitus with ketoacidosis without coma; Z86.19 Personal history of other infectious and parasitic diseases; E66.01 Morbid (severe) obesity due to excess calories; Z68.41 Body mass index [BMI] 40.0-44.9, adult; F12.90 Cannabis use, unspecified, uncomplicated; Z90.710 Acquired absence of both cervix and uterus; Z98.890 Other specified postprocedural states; Z91.040 Latex allergy status; Z88.8 Allergy status to other drugs, medicaments and biological substances; Z79.899 Other long term (current) drug therapy; Z79.82 Long term (current) use of aspirin
CPT/HCPCS: 49083; P9047

== ENCOUNTER 2020-05-14 06:57 | Day surgery (SDC) | payer MEDICARE, MEDICAID ==
[~2020-05-14] VITALS: Ht 167.6 cm; Wt 120.5 kg
[2020-05-14] VITALS (11 sets, daily range): BP systolic 137–173; BP diastolic 70–86
[2020-05-14] MEDS ORDERED: CLON-528 PO (07:24)
[2020-05-14] MEDS: albumin 25% 100mL bottle x 1 IV PRN ×2 (09:18→09:59)
== END 2020-05-14 11:05 | disposition home or self-care (01) ==
LOC: SSTAY O 06:57
PROVIDERS: ATTEND Radiology Vascular & Interventional Radiology
DX: R18.8 Other ascites (principal); K74.60 Unspecified cirrhosis of liver; Z20.828 Contact with and (suspected) exposure to other viral communicable diseases; I10 Essential (primary) hypertension; J44.9 Chronic obstructive pulmonary disease, unspecified; F41.9 Anxiety disorder, unspecified; F32.9 Major depressive disorder, single episode, unspecified; E11.10 Type 2 diabetes mellitus with ketoacidosis without coma; E66.01 Morbid (severe) obesity due to excess calories; Z68.41 Body mass index [BMI] 40.0-44.9, adult; Z86.19 Personal history of other infectious and parasitic diseases; Z90.710 Acquired absence of both cervix and uterus; Z98.890 Other specified postprocedural states; F12.90 Cannabis use, unspecified, uncomplicated; Z88.8 Allergy status to other drugs, medicaments and biological substances; Z91.040 Latex allergy status; Z79.899 Other long term (current) drug therapy; Z79.82 Long term (current) use of aspirin
CPT/HCPCS: 36415; 49083; 87635; P9047

== ENCOUNTER 2020-05-27 14:40 | Day surgery (SDC) | payer MEDICARE, MEDICAID ==
[2020-05-25 13:33] LABS: BASOPHILS # (AUTO) 0.1 X10'3 (0-0.2); BASOPHILS % (AUTO) 0.8 % (0-1); EOSINOPHILS # (AUTO) 0.3 X10'3 (0-0.9); EOSINOPHILS % (AUTO) 3.8 % (0-6); HEMATOCRIT 39.8 % (35.0-45.0); HEMOGLOBIN 13.3 g/dl (12.0-16.0); LYMPHOCYTES # (AUTO) 0.9 X10'3 (1.1-4.8); MEAN CORPUSCULAR HEMOGLOBIN 30.7 PG (27.0-31.0); MEAN CORPUSCULAR HGB CONC 33.5 g/dL (33.0-36.5); MEAN CORPUSCULAR VOLUME 91.6 FL (78-98); MEAN PLATELET VOLUME 8.8 FL (7.4-10.4); MONOCYTES # (AUTO) 0.4 X10'3 (0-0.9); MONOCYTES % (AUTO) 5.4 % (2-12); NEUTROPHILS # (AUTO) 5.1 X10'3 (1.8-7.7); PLATELET COUNT 148 X10'3 (140-440); RED BLOOD COUNT 4.35 X10'6 (4.20-5.60); RED CELL DISTRIBUTION WIDTH 13.2 % (11.5-14.5); WHITE BLOOD COUNT 6.6 X10'3 (4.5-11.0)
[2020-05-25 13:43] LABS: ALBUMIN 2.9 G/DL (3.4-5.0); ANION GAP 7 (8-16); BLOOD UREA NITROGEN 31 MG/DL (7-18); BUN/CREATININE RATIO 14.7 (6.6-38.0); CALCIUM 8.5 MG/DL (8.5-10.1); CHLORIDE 111 MMOL/L (99-107); CREATININE 2.11 MG/DL (0.40-0.90); GLUCOSE 97 MG/DL (70-104); POTASSIUM 4.9 MMOL/L (3.5-5.1); SODIUM 145 MMOL/L (135-145); TOTAL CARBON DIOXIDE 27.4 MMOL/L (24-32); eGFR 24 ML/MIN
[2020-05-25 13:48] LABS: PARTIAL THROMBOPLASTIN TIME 28 SECONDS (22-32)
[2020-05-27] VITALS (7 sets, daily range): BP systolic 111–144; BP diastolic 54–76
[~2020-05-27] VITALS: Ht 167.6 cm; Wt 126.0 kg
[~2020-05-27 14:40] MED LIST changes: +CLON-528 PO
[2020-05-27] MEDS ORDERED: LORazepam 0.5 MG tablet PO PRN (15:10)
[2020-05-27] MEDS ORDERED: normal saline 1,000 ML IV SCH (15:10)
[2020-05-27] MEDS ORDERED: diphenhydrAMINE 25mg capsule PO PRN (15:10)
[2020-05-27] MEDS ORDERED: LIDOcaine/PRILOcaine 5gm cream TP ONE (15:10)
[2020-05-27] MEDS ORDERED: METO5TAB85 PO (15:43)
[2020-05-27] MEDS ORDERED: midazolam 2 mg/2 ml injection ONE (17:45)
[2020-05-27] MEDS ORDERED: fentaNYL/PF 50MCG/1 ML 2ML syringe ONE (17:45)
[2020-05-27] MEDS ORDERED: verapamil 2.5 mg/ml inj IV ONE (17:45)
[2020-05-27] MEDS ORDERED: iohexol 350MG/ML 100ml bottle IV ONE (17:46)
[2020-05-27] MEDS ORDERED: heparin 1,000unit/ml 10ml vial 10 ML ONE (17:46)
[2020-05-27] MEDS ORDERED: nitroGLYCERIN-Tridil 50MG/D5W 250 ML IV ONE (17:46)
[2020-05-27] MEDS ORDERED: LIDOcaine 1% (10mg/ml)w/preservative injection 20ml MDV ONE (17:46)
[2020-05-27] MEDS ORDERED: iohexol 350 MG/ML 50ML vial IV ONE (18:14)
[2020-05-27] MEDS ORDERED: clopidogrel 300mg tablet ONE (19:03)
== END 2020-05-27 21:05 | disposition home or self-care (01) ==
LOC: SSTAY O 14:40
PROVIDERS: ATTEND Student in an Organized Health Care Education/Training Program
DX: R94.39 Abnormal result of other cardiovascular function study (principal); I25.10 Atherosclerotic heart disease of native coronary artery without angina pectoris; K74.60 Unspecified cirrhosis of liver; G47.33 Obstructive sleep apnea (adult) (pediatric); E11.22 Type 2 diabetes mellitus with diabetic chronic kidney disease; I13.0 Hypertensive heart and chronic kidney disease with heart failure and stage 1 through stage 4 chronic kidney disease, or unspecified chronic kidney disease; I50.9 Heart failure, unspecified; N18.9 Chronic kidney disease, unspecified; J44.9 Chronic obstructive pulmonary disease, unspecified; I25.2 Old myocardial infarction; E78.5 Hyperlipidemia, unspecified; Z95.5 Presence of coronary angioplasty implant and graft; Z87.891 Personal history of nicotine dependence; Z79.4 Long term (current) use of insulin; Z79.899 Other long term (current) drug therapy; Z79.82 Long term (current) use of aspirin
CPT/HCPCS: 36415; 76937; 80048; 85025; 85610; 85730; 93005; 93458; 99152; 99153; C1725; C1751; C1769; C1874; C1894; C9600; J1644; J2001; J2250; J3010; J7030; Q0163; Q9967; A4620; A5120; J3490

== ENCOUNTER 2020-06-04 05:59 | Day surgery (SDC) | payer MEDICARE, MEDICAID ==
[2020-06-04] VITALS (13 sets, daily range): BP systolic 121–157; BP diastolic 54–95
[~2020-06-04] VITALS: Ht 167.6 cm; Wt 131.4 kg
[~2020-06-04 05:59] MED LIST changes: -CLON-528 PO; +METO5TAB85 PO
[2020-06-04] MEDS ORDERED: [UNRECOGNIZED DRUG - OTHER] PO (06:44)
[2020-06-04] MEDS ORDERED: CLOP75TA15 PO (06:44)
[2020-06-04] MEDS ORDERED: MILK150C2 PO (06:50)
[2020-06-04] MEDS: albumin 25% 100mL bottle x 1 IV PRN ×3 (08:40→09:57)
== END 2020-06-04 11:25 | disposition home or self-care (01) ==
LOC: SSTAY O 05:59
PROVIDERS: ATTEND Radiology Vascular & Interventional Radiology
DX: R18.8 Other ascites (principal); I10 Essential (primary) hypertension; J44.9 Chronic obstructive pulmonary disease, unspecified; E11.9 Type 2 diabetes mellitus without complications; F41.9 Anxiety disorder, unspecified; F32.9 Major depressive disorder, single episode, unspecified; E66.01 Morbid (severe) obesity due to excess calories; K74.60 Unspecified cirrhosis of liver; Z90.710 Acquired absence of both cervix and uterus; Z98.890 Other specified postprocedural states; Z79.899 Other long term (current) drug therapy; Z79.82 Long term (current) use of aspirin; Z91.040 Latex allergy status; Z88.8 Allergy status to other drugs, medicaments and biological substances
CPT/HCPCS: 49083; P9047

== ENCOUNTER 2020-06-30 07:23 | Day surgery (SDC) | payer MEDICARE, MEDICAID ==
[~2020-06-30] VITALS: Ht 167.6 cm; Wt 134.3 kg
[2020-06-30] VITALS (7 sets, daily range): BP systolic 118–161; BP diastolic 54–90
[~2020-06-30 07:23] MED LIST changes: +CLOP75TA15 PO; +MILK150C2 PO
[2020-06-30] MEDS ORDERED: normal saline 1000ml 1,000 ML IV PRN (07:55)
--- NOTE | 2020-06-30 08:30 | NUR ---
Upon admission, pt stated that she felt "a little fuzzy in the head". I encouraged her to start taking lactulose as it would remove the ammonia which is possibly the reason why she is feeling that way. She agreed to start taking lactulose faithfully. I will reiterate/reenforce that point before discharge. Addendum: 06/30/20 at 0915 by Vance Delgado RN Amended: Links added.
[2020-06-30] MEDS: albumin 25% 100mL bottle x 1 IV PRN ×2 (09:01→09:06)
== END 2020-06-30 10:40 | disposition home or self-care (01) ==
LOC: SSTAY O 07:23
PROVIDERS: ATTEND Radiology Diagnostic Radiology
DX: R18.8 Other ascites (principal); I10 Essential (primary) hypertension; J44.9 Chronic obstructive pulmonary disease, unspecified; E11.10 Type 2 diabetes mellitus with ketoacidosis without coma; F41.9 Anxiety disorder, unspecified; F32.9 Major depressive disorder, single episode, unspecified; E66.01 Morbid (severe) obesity due to excess calories; Z68.42 Body mass index [BMI] 45.0-49.9, adult; Z86.19 Personal history of other infectious and parasitic diseases; K74.60 Unspecified cirrhosis of liver; I25.10 Atherosclerotic heart disease of native coronary artery without angina pectoris; Z90.710 Acquired absence of both cervix and uterus; Z98.890 Other specified postprocedural states; Z79.899 Other long term (current) drug therapy; Z91.040 Latex allergy status; Z88.8 Allergy status to other drugs, medicaments and biological substances; F12.90 Cannabis use, unspecified, uncomplicated; Z79.01 Long term (current) use of anticoagulants; Z79.82 Long term (current) use of aspirin
CPT/HCPCS: 49083; P9047

== ENCOUNTER 2020-08-04 07:12 | Day surgery (SDC) | payer MEDICARE, MEDICAID ==
[~2020-08-04] VITALS: Ht 167.6 cm; Wt 132.4 kg
[2020-08-04] VITALS (13 sets, daily range): BP systolic 122–171; BP diastolic 42–79
[~2020-08-04 07:12] MED LIST changes: -LACT10SO PO; +LACT10SO3 PO; +SERT-434 PO; -SERT100T10 PO
[2020-08-04] MEDS: albumin 25% 100mL bottle x 1 IV PRN ×3 (10:37→12:25)
== END 2020-08-04 13:10 | disposition home or self-care (01) ==
LOC: SSTAY O 07:12
PROVIDERS: ATTEND Radiology Diagnostic Radiology
DX: R18.8 Other ascites (principal); K74.60 Unspecified cirrhosis of liver; J44.9 Chronic obstructive pulmonary disease, unspecified; I10 Essential (primary) hypertension; F32.9 Major depressive disorder, single episode, unspecified; I25.10 Atherosclerotic heart disease of native coronary artery without angina pectoris; E11.10 Type 2 diabetes mellitus with ketoacidosis without coma; Z86.19 Personal history of other infectious and parasitic diseases; F12.90 Cannabis use, unspecified, uncomplicated; Z91.040 Latex allergy status; Z88.8 Allergy status to other drugs, medicaments and biological substances; Z79.899 Other long term (current) drug therapy; Z79.82 Long term (current) use of aspirin; Z79.01 Long term (current) use of anticoagulants
CPT/HCPCS: 49083; P9047

== ENCOUNTER 2020-09-01 07:10 | Day surgery (SDC) | payer MEDICARE, MEDICAID ==
[2020-09-01] VITALS (10 sets, daily range): BP systolic 115–168; BP diastolic 58–92
[~2020-09-01] VITALS: Ht 167.6 cm; Wt 128.7 kg
[2020-09-01] MEDS ORDERED: LIDOcaine 1% (10mg/ml) 2ml vial ONE (07:37)
[2020-09-01] MEDS: albumin 25% 100mL bottle x 1 IV PRN ×3 (09:37→10:23)
== END 2020-09-01 12:05 | disposition home or self-care (01) ==
LOC: SSTAY O 07:10
PROVIDERS: ATTEND Radiology Diagnostic Radiology
DX: R18.8 Other ascites (principal); I10 Essential (primary) hypertension; J44.9 Chronic obstructive pulmonary disease, unspecified; I25.10 Atherosclerotic heart disease of native coronary artery without angina pectoris; F41.9 Anxiety disorder, unspecified; F32.9 Major depressive disorder, single episode, unspecified; E11.10 Type 2 diabetes mellitus with ketoacidosis without coma; E66.01 Morbid (severe) obesity due to excess calories; Z86.19 Personal history of other infectious and parasitic diseases; K74.60 Unspecified cirrhosis of liver; F12.90 Cannabis use, unspecified, uncomplicated; Z91.040 Latex allergy status; Z88.8 Allergy status to other drugs, medicaments and biological substances; Z79.899 Other long term (current) drug therapy; Z79.82 Long term (current) use of aspirin; Z79.01 Long term (current) use of anticoagulants
CPT/HCPCS: 49083; J2001; P9047

== ENCOUNTER 2020-09-24 08:20 | Day surgery (SDC) | payer MEDICARE, MEDICAID ==
[~2020-09-24] VITALS: Ht 167.6 cm; Wt 129.3 kg
[2020-09-24] VITALS (13 sets, daily range): BP systolic 122–140; BP diastolic 45–92
[2020-09-24] MEDS: albumin 25% 100mL bottle x 1 IV PRN ×3 (10:48→11:47)
== END 2020-09-24 13:30 | disposition home or self-care (01) ==
LOC: SSTAY O 08:20
PROVIDERS: ATTEND Radiology Vascular & Interventional Radiology
DX: R18.8 Other ascites (principal); I10 Essential (primary) hypertension; I25.10 Atherosclerotic heart disease of native coronary artery without angina pectoris; J44.9 Chronic obstructive pulmonary disease, unspecified; E11.10 Type 2 diabetes mellitus with ketoacidosis without coma; K74.60 Unspecified cirrhosis of liver; F41.9 Anxiety disorder, unspecified; F32.9 Major depressive disorder, single episode, unspecified; E66.01 Morbid (severe) obesity due to excess calories; Z68.42 Body mass index [BMI] 45.0-49.9, adult; Z86.19 Personal history of other infectious and parasitic diseases; Z90.710 Acquired absence of both cervix and uterus; Z98.890 Other specified postprocedural states; Z91.040 Latex allergy status; Z88.8 Allergy status to other drugs, medicaments and biological substances; Z79.01 Long term (current) use of anticoagulants; Z79.899 Other long term (current) drug therapy
CPT/HCPCS: 49083; 82948; P9047

== ENCOUNTER 2020-10-09 06:37 | Day surgery (SDC) | payer MEDICARE, MEDICAID ==
[~2020-10-09] VITALS: Ht 167.6 cm; Wt 126.7 kg
[2020-10-09] VITALS (10 sets, daily range): BP systolic 105–142; BP diastolic 41–68
[~2020-10-09 06:37] MED LIST changes: -SODI454P9 PO
[2020-10-09] MEDS: albumin 25% 100mL bottle x 1 IV PRN ×2 (08:34→09:30)
== END 2020-10-09 10:50 | disposition home or self-care (01) ==
LOC: SSTAY O 06:37
PROVIDERS: ATTEND Radiology Diagnostic Radiology
DX: R18.8 Other ascites (principal); I10 Essential (primary) hypertension; J44.9 Chronic obstructive pulmonary disease, unspecified; E11.9 Type 2 diabetes mellitus without complications; F41.9 Anxiety disorder, unspecified; F32.9 Major depressive disorder, single episode, unspecified; I25.10 Atherosclerotic heart disease of native coronary artery without angina pectoris; K74.60 Unspecified cirrhosis of liver; E11.10 Type 2 diabetes mellitus with ketoacidosis without coma; E66.01 Morbid (severe) obesity due to excess calories; Z68.41 Body mass index [BMI] 40.0-44.9, adult; Z90.710 Acquired absence of both cervix and uterus; Z98.890 Other specified postprocedural states; F12.90 Cannabis use, unspecified, uncomplicated; Z91.040 Latex allergy status; Z88.8 Allergy status to other drugs, medicaments and biological substances; Z79.899 Other long term (current) drug therapy; Z79.82 Long term (current) use of aspirin; Z79.01 Long term (current) use of anticoagulants; Z79.4 Long term (current) use of insulin
CPT/HCPCS: 49083; P9047

== ENCOUNTER 2020-10-26 07:10 | Day surgery (SDC) | payer MEDICARE, MEDICAID ==
[~2020-10-26] VITALS: Ht 167.6 cm; Wt 130.8 kg
[2020-10-26] VITALS (13 sets, daily range): BP systolic 95–154; BP diastolic 36–82
[2020-10-26] MEDS: albumin 25% 100mL bottle x 1 IV PRN ×3 (09:12→10:50)
== END 2020-10-26 11:55 | disposition home or self-care (01) ==
LOC: SSTAY O 07:10
PROVIDERS: ATTEND Radiology Vascular & Interventional Radiology
DX: R18.8 Other ascites (principal); I10 Essential (primary) hypertension; J44.9 Chronic obstructive pulmonary disease, unspecified; F41.9 Anxiety disorder, unspecified; F32.9 Major depressive disorder, single episode, unspecified; E11.10 Type 2 diabetes mellitus with ketoacidosis without coma; E66.01 Morbid (severe) obesity due to excess calories; K74.60 Unspecified cirrhosis of liver; I25.10 Atherosclerotic heart disease of native coronary artery without angina pectoris; F12.90 Cannabis use, unspecified, uncomplicated; Z91.040 Latex allergy status; Z88.8 Allergy status to other drugs, medicaments and biological substances; Z79.899 Other long term (current) drug therapy; Z79.82 Long term (current) use of aspirin; Z98.890 Other specified postprocedural states; Z90.710 Acquired absence of both cervix and uterus; Z79.01 Long term (current) use of anticoagulants; Z86.19 Personal history of other infectious and parasitic diseases
CPT/HCPCS: 49083; P9047

== ENCOUNTER 2020-11-16 07:12 | Day surgery (SDC) | payer MEDICARE, MEDICAID ==
[2020-11-16] VITALS (13 sets, daily range): BP systolic 133–169; BP diastolic 60–94
[~2020-11-16] VITALS: Ht 167.6 cm; Wt 126.0 kg
[2020-11-16] MEDS ORDERED: normal saline 1000ml 1,000 ML IV PRN (07:55)
[2020-11-16] MEDS: albumin 25% 100mL bottle x 1 IV PRN ×3 (08:45→09:24)
== END 2020-11-16 11:10 | disposition home or self-care (01) ==
LOC: SSTAY O 07:12
PROVIDERS: ATTEND Radiology Diagnostic Radiology
DX: R18.8 Other ascites (principal); K74.60 Unspecified cirrhosis of liver; J44.9 Chronic obstructive pulmonary disease, unspecified; F41.9 Anxiety disorder, unspecified; F32.9 Major depressive disorder, single episode, unspecified; Z86.19 Personal history of other infectious and parasitic diseases; E66.01 Morbid (severe) obesity due to excess calories; E11.9 Type 2 diabetes mellitus without complications; I10 Essential (primary) hypertension; I25.10 Atherosclerotic heart disease of native coronary artery without angina pectoris; Z90.710 Acquired absence of both cervix and uterus; Z98.890 Other specified postprocedural states; F12.90 Cannabis use, unspecified, uncomplicated; Z79.899 Other long term (current) drug therapy
CPT/HCPCS: 49083; P9047

== ENCOUNTER 2020-12-01 07:23 | Day surgery (SDC) | payer MEDICARE, MEDICAID ==
[~2020-12-01] VITALS: Ht 167.6 cm; Wt 125.1 kg
[2020-12-01] VITALS (10 sets, daily range): BP systolic 102–151; BP diastolic 44–82
[~2020-12-01 07:23] MED LIST changes: -METO5TAB85 PO
[2020-12-01] MEDS: albumin 25% 100mL bottle x 1 IV PRN ×2 (09:17→10:49)
== END 2020-12-01 12:20 | disposition home or self-care (01) ==
LOC: SSTAY O 07:23
PROVIDERS: ATTEND Radiology Vascular & Interventional Radiology
DX: R18.8 Other ascites (principal); R14.0 Abdominal distension (gaseous); I25.10 Atherosclerotic heart disease of native coronary artery without angina pectoris; K74.60 Unspecified cirrhosis of liver; I10 Essential (primary) hypertension; J44.9 Chronic obstructive pulmonary disease, unspecified; F32.9 Major depressive disorder, single episode, unspecified; E11.10 Type 2 diabetes mellitus with ketoacidosis without coma; F41.9 Anxiety disorder, unspecified; E66.01 Morbid (severe) obesity due to excess calories; Z68.41 Body mass index [BMI] 40.0-44.9, adult; Z86.19 Personal history of other infectious and parasitic diseases; Z90.710 Acquired absence of both cervix and uterus; Z98.890 Other specified postprocedural states; F12.90 Cannabis use, unspecified, uncomplicated
CPT/HCPCS: 49083; P9047

== ENCOUNTER 2020-12-18 07:21 | Day surgery (SDC) | payer MEDICARE, MEDICAID ==
[2020-12-18] VITALS (12 sets, daily range): BP systolic 130–165; BP diastolic 64–99
[~2020-12-18] VITALS: Ht 167.6 cm; Wt 125.8 kg
[2020-12-18] MEDS: albumin 25% 100mL bottle x 1 IV PRN ×2 (08:54→09:36)
== END 2020-12-18 10:46 | disposition home or self-care (01) ==
LOC: SSTAY O 07:21
PROVIDERS: ATTEND Radiology Vascular & Interventional Radiology
DX: R18.8 Other ascites (principal); R14.0 Abdominal distension (gaseous); K74.60 Unspecified cirrhosis of liver; I25.10 Atherosclerotic heart disease of native coronary artery without angina pectoris; E11.10 Type 2 diabetes mellitus with ketoacidosis without coma; I10 Essential (primary) hypertension; J44.9 Chronic obstructive pulmonary disease, unspecified; F41.9 Anxiety disorder, unspecified; F32.9 Major depressive disorder, single episode, unspecified; E66.01 Morbid (severe) obesity due to excess calories; Z68.41 Body mass index [BMI] 40.0-44.9, adult; Z86.19 Personal history of other infectious and parasitic diseases; Z90.710 Acquired absence of both cervix and uterus; Z98.890 Other specified postprocedural states; Z91.040 Latex allergy status
CPT/HCPCS: 49083; P9047

== ENCOUNTER 2021-01-05 07:15 | Day surgery (SDC) | payer MEDICARE, MEDICAID ==
[~2021-01-05] VITALS: Ht 167.6 cm; Wt 133.0 kg
[2021-01-05] VITALS (13 sets, daily range): BP systolic 134–168; BP diastolic 43–85
[2021-01-05] MEDS: albumin 25% 100mL bottle x 1 IV PRN ×3 (09:11→11:20)
== END 2021-01-05 11:40 | disposition home or self-care (01) ==
LOC: SSTAY O 07:15
PROVIDERS: ATTEND Radiology Vascular & Interventional Radiology
DX: R18.8 Other ascites (principal); R14.0 Abdominal distension (gaseous); K74.60 Unspecified cirrhosis of liver; I25.10 Atherosclerotic heart disease of native coronary artery without angina pectoris; J44.9 Chronic obstructive pulmonary disease, unspecified; I10 Essential (primary) hypertension; F41.9 Anxiety disorder, unspecified; F32.9 Major depressive disorder, single episode, unspecified; E11.10 Type 2 diabetes mellitus with ketoacidosis without coma; E66.01 Morbid (severe) obesity due to excess calories; Z68.42 Body mass index [BMI] 45.0-49.9, adult; Z86.19 Personal history of other infectious and parasitic diseases; Z98.890 Other specified postprocedural states; Z90.710 Acquired absence of both cervix and uterus; F12.90 Cannabis use, unspecified, uncomplicated; Z91.040 Latex allergy status; Z88.8 Allergy status to other drugs, medicaments and biological substances; Z79.01 Long term (current) use of anticoagulants; Z79.82 Long term (current) use of aspirin; Z79.899 Other long term (current) drug therapy; Z79.4 Long term (current) use of insulin
CPT/HCPCS: 49083; P9047

== ENCOUNTER 2021-01-21 06:09 | Day surgery (SDC) | payer MEDICARE, MEDICAID ==
[~2021-01-21] VITALS: Ht 167.6 cm; Wt 130.0 kg
[2021-01-21] VITALS (12 sets, daily range): BP systolic 143–174; BP diastolic 49–67
[2021-01-21] MEDS: albumin 25% 100mL bottle x 1 IV PRN ×3 (08:15→10:00)
== END 2021-01-21 11:20 | disposition home or self-care (01) ==
LOC: SSTAY O 06:09
PROVIDERS: ATTEND Radiology Diagnostic Radiology
DX: R18.8 Other ascites (principal); I25.10 Atherosclerotic heart disease of native coronary artery without angina pectoris; K74.60 Unspecified cirrhosis of liver; J44.9 Chronic obstructive pulmonary disease, unspecified; I10 Essential (primary) hypertension; F41.9 Anxiety disorder, unspecified; F32.9 Major depressive disorder, single episode, unspecified; E11.10 Type 2 diabetes mellitus with ketoacidosis without coma; E66.01 Morbid (severe) obesity due to excess calories; Z68.42 Body mass index [BMI] 45.0-49.9, adult; Z90.710 Acquired absence of both cervix and uterus; Z98.890 Other specified postprocedural states; F12.90 Cannabis use, unspecified, uncomplicated; Z86.19 Personal history of other infectious and parasitic diseases; Z91.040 Latex allergy status; Z88.8 Allergy status to other drugs, medicaments and biological substances
CPT/HCPCS: 49083; P9047

== ENCOUNTER 2021-02-01 07:41 | Day surgery (SDC) | payer MEDICARE, MEDICAID ==
[~2021-02-01] VITALS: Ht 167.6 cm; Wt 130.0 kg
[2021-02-01] VITALS (14 sets, daily range): BP systolic 139–157; BP diastolic 49–122
[~2021-02-01 07:41] MED LIST changes: -CLOP75TA15 PO; -FURO40TA4 PO
[2021-02-01] MEDS ORDERED: normal saline 1000ml 1,000 ML IV PRN (08:10)
[2021-02-01] MEDS: albumin 25% 100mL bottle x 1 IV PRN ×3 (10:07→11:23)
== END 2021-02-01 12:30 | disposition home or self-care (01) ==
LOC: SSTAY O 07:41
PROVIDERS: ATTEND Preventive Medicine Aerospace Medicine
DX: R18.8 Other ascites (principal); R14.0 Abdominal distension (gaseous); I10 Essential (primary) hypertension; J44.9 Chronic obstructive pulmonary disease, unspecified; F32.9 Major depressive disorder, single episode, unspecified; F41.9 Anxiety disorder, unspecified; I25.10 Atherosclerotic heart disease of native coronary artery without angina pectoris; K74.60 Unspecified cirrhosis of liver; E11.10 Type 2 diabetes mellitus with ketoacidosis without coma; F12.90 Cannabis use, unspecified, uncomplicated; Z91.040 Latex allergy status; Z88.8 Allergy status to other drugs, medicaments and biological substances; E66.01 Morbid (severe) obesity due to excess calories; Z68.42 Body mass index [BMI] 45.0-49.9, adult; Z90.710 Acquired absence of both cervix and uterus; Z86.19 Personal history of other infectious and parasitic diseases; Z79.899 Other long term (current) drug therapy; Z98.890 Other specified postprocedural states
CPT/HCPCS: 49083; P9047

== ENCOUNTER 2021-02-16 06:48 | Day surgery (SDC) | payer MEDICARE, MEDICAID ==
[~2021-02-16] VITALS: Ht 167.6 cm; Wt 128.0 kg
[2021-02-16 07:43] VITALS: BP 163/68
[2021-02-16 08:00] VITALS: BP 163/68
[2021-02-16] MEDS ORDERED: SIMV-42 PO (08:00)
[2021-02-16] MEDS ORDERED: TRAZ-256 PO (08:00)
[2021-02-16] MEDS ORDERED: PRAM0.253 PO (08:00)
[2021-02-16] MEDS ORDERED: SERT-434 PO (08:00)
[2021-02-16] MEDS: albumin 25% 100mL bottle x 1 IV PRN ×3 (09:26→12:12)
[2021-02-16 13:00] VITALS: BP 164/70
== END 2021-02-16 13:00 | disposition home or self-care (01) ==
LOC: SSTAY O 06:48
PROVIDERS: ATTEND Radiology Vascular & Interventional Radiology
DX: R18.8 Other ascites (principal); K74.60 Unspecified cirrhosis of liver; J44.9 Chronic obstructive pulmonary disease, unspecified; I10 Essential (primary) hypertension; F41.9 Anxiety disorder, unspecified; F32.9 Major depressive disorder, single episode, unspecified; E11.10 Type 2 diabetes mellitus with ketoacidosis without coma; I25.10 Atherosclerotic heart disease of native coronary artery without angina pectoris; F12.90 Cannabis use, unspecified, uncomplicated; E66.01 Morbid (severe) obesity due to excess calories; Z68.42 Body mass index [BMI] 45.0-49.9, adult; Z86.19 Personal history of other infectious and parasitic diseases; Z90.710 Acquired absence of both cervix and uterus; Z98.890 Other specified postprocedural states; Z91.040 Latex allergy status; Z88.8 Allergy status to other drugs, medicaments and biological substances; Z79.899 Other long term (current) drug therapy; Z79.82 Long term (current) use of aspirin; Z79.4 Long term (current) use of insulin
CPT/HCPCS: 49083; P9047

== ENCOUNTER 2021-03-15 07:15 | Day surgery (SDC) | payer MEDICARE, MEDICAID ==
[~2021-03-15] VITALS: Ht 167.6 cm; Wt 142.5 kg
[2021-03-15] VITALS (11 sets, daily range): BP systolic 147–170; BP diastolic 57–97
[~2021-03-15 07:15] MED LIST changes: -MAGN400T28 PO; +MAGN400T56 PO; -PRAM0.252 PO; +PRAM0.253 PO; +SIMV-42 PO; -SIMV20TA5 PO; -SPIR100T5 PO; -TRAZ-251 PO; +TRAZ-256 PO
[2021-03-15] MEDS: albumin 25% 100mL bottle x 1 IV PRN ×3 (09:23→10:57)
== END 2021-03-15 12:00 | disposition home or self-care (01) ==
LOC: SSTAY O 07:15
PROVIDERS: ATTEND Preventive Medicine Aerospace Medicine
DX: R18.8 Other ascites (principal); R14.0 Abdominal distension (gaseous); I10 Essential (primary) hypertension; J44.9 Chronic obstructive pulmonary disease, unspecified; F41.9 Anxiety disorder, unspecified; F32.9 Major depressive disorder, single episode, unspecified; E11.10 Type 2 diabetes mellitus with ketoacidosis without coma; I25.10 Atherosclerotic heart disease of native coronary artery without angina pectoris; K74.60 Unspecified cirrhosis of liver; F12.90 Cannabis use, unspecified, uncomplicated; E66.01 Morbid (severe) obesity due to excess calories; Z68.43 Body mass index [BMI] 50.0-59.9, adult; Z86.19 Personal history of other infectious and parasitic diseases; Z79.899 Other long term (current) drug therapy; Z90.710 Acquired absence of both cervix and uterus; Z98.890 Other specified postprocedural states
CPT/HCPCS: 49083; P9047

== ENCOUNTER 2021-03-30 07:07 | Day surgery (SDC) | payer MEDICARE, MEDICAID ==
[~2021-03-30] VITALS: Ht 167.6 cm; Wt 136.9 kg
[2021-03-30] VITALS (11 sets, daily range): BP systolic 122–165; BP diastolic 64–102
[2021-03-30] MEDS: albumin 25% 100mL bottle x 1 IV PRN (10:53)
[2021-03-30] MEDS ORDERED: FLU VACC QS2021-22(6MOS UP)/PF 60 MCG/0.5 ML SYRINGE IM ONE (12:00)
== END 2021-03-30 12:30 | disposition home or self-care (01) ==
LOC: SSTAY O 07:07
PROVIDERS: ATTEND Radiology Vascular & Interventional Radiology
DX: R18.8 Other ascites (principal); R14.0 Abdominal distension (gaseous); I10 Essential (primary) hypertension; J44.9 Chronic obstructive pulmonary disease, unspecified; F41.9 Anxiety disorder, unspecified; F32.9 Major depressive disorder, single episode, unspecified; E11.10 Type 2 diabetes mellitus with ketoacidosis without coma; E66.01 Morbid (severe) obesity due to excess calories; Z68.42 Body mass index [BMI] 45.0-49.9, adult; K74.60 Unspecified cirrhosis of liver; I25.10 Atherosclerotic heart disease of native coronary artery without angina pectoris; Z86.19 Personal history of other infectious and parasitic diseases; Z90.710 Acquired absence of both cervix and uterus; Z98.890 Other specified postprocedural states; Z91.040 Latex allergy status; Z88.8 Allergy status to other drugs, medicaments and biological substances; Z79.899 Other long term (current) drug therapy; Z79.4 Long term (current) use of insulin; Z79.82 Long term (current) use of aspirin
CPT/HCPCS: 49083; P9047

== ENCOUNTER 2021-04-26 07:39 | Day surgery (SDC) | payer MEDICARE, MEDICAID ==
[~2021-04-26] VITALS: Ht 167.6 cm; Wt 138.2 kg
[~2021-04-26 07:39] MED LIST changes: +LIDOcaine 1% 30ml preserv. free vial SQ STA
[2021-04-26 07:54] VITALS: BP 154/79
[2021-04-26] MEDS ORDERED: OXYGEN NASALCANN (08:12)
[2021-04-26] MEDS ORDERED: normal saline 1000ml 1,000 ML IV PRN (08:15)
[2021-04-26 09:15] VITALS: BP 121/62
[2021-04-26] MEDS: albumin 25% 100mL bottle x 1 IV PRN ×3 (09:28→11:28)
[2021-04-26 10:30] VITALS: BP 109/58
[2021-05-07] MEDS ORDERED: LAMO100T2 PO ×2 (12:42)
[2021-05-07] MEDS ORDERED: CARV3.122 PO (12:42)
[2021-05-07] MEDS ORDERED: FLO110IN PO (12:42)
[2021-05-07] MEDS ORDERED: LEVA15HF6 PO (12:42)
[2021-05-07] MEDS ORDERED: TRAZ150T78 PO (12:42)
[2021-05-07] MEDS ORDERED: PRAM0.258 PO (12:42)
[2021-05-07] MEDS ORDERED: CLOP75TA34 PO (12:42)
== END 2021-04-26 12:45 | disposition home or self-care (01) ==
LOC: SSTAY O 07:39
PROVIDERS: ATTEND Radiology Diagnostic Radiology
DX: R18.8 Other ascites (principal); R14.0 Abdominal distension (gaseous); J44.9 Chronic obstructive pulmonary disease, unspecified; I10 Essential (primary) hypertension; F41.9 Anxiety disorder, unspecified; F32.9 Major depressive disorder, single episode, unspecified; I25.10 Atherosclerotic heart disease of native coronary artery without angina pectoris; E11.10 Type 2 diabetes mellitus with ketoacidosis without coma; F12.90 Cannabis use, unspecified, uncomplicated; E66.01 Morbid (severe) obesity due to excess calories; Z68.42 Body mass index [BMI] 45.0-49.9, adult; Z86.19 Personal history of other infectious and parasitic diseases; Z90.710 Acquired absence of both cervix and uterus; Z98.890 Other specified postprocedural states; Z91.040 Latex allergy status; Z88.8 Allergy status to other drugs, medicaments and biological substances
CPT/HCPCS: 49083; P9047

== ENCOUNTER 2021-06-14 07:08 | Day surgery (SDC) | payer MEDICARE, MEDICAID ==
[~2021-06-14] VITALS: Ht 167.6 cm; Wt 122.7 kg
[2021-06-14] VITALS (8 sets, daily range): BP systolic 120–156; BP diastolic 64–73
[~2021-06-14 07:08] MED LIST changes: -AMLO10TA PO; -ASPI-611 PO; +ATR0.5NEB NEB; +CARV3.122 PO; +CLOP75TA34 PO; +DOCU-148 PO; -FERR325T28 PO; +FLO110IN PO; +FURO-149 PO; -GABA-532 PO; -INSU100I31 SQ; +INSU100V43 SQ; +INSU100V9 SQ; +ISOS30TA84 PO; -LAMO100T PO; +LAMO100T2 PO; -LIDOcaine 1% 30ml preserv. free vial SQ STA; -MAGN400T56 PO; -MILK150C2 PO; +MULT-1085 PO; -OMEP-50 PO; -PRAM0.253 PO; +PRAM0.258 PO; -SERT-434 PO; -SIMV-42 PO; -TRAZ-256 PO; +TRAZ150T78 PO
[2021-06-14] MEDS: albumin 25% 100mL bottle x 1 IV PRN ×2 (09:03→09:51)
== END 2021-06-14 11:00 | disposition home or self-care (01) ==
LOC: SSTAY O 07:08
PROVIDERS: ATTEND Preventive Medicine Aerospace Medicine
DX: R18.8 Other ascites (principal); R14.0 Abdominal distension (gaseous); I25.10 Atherosclerotic heart disease of native coronary artery without angina pectoris; J44.9 Chronic obstructive pulmonary disease, unspecified; I10 Essential (primary) hypertension; E11.10 Type 2 diabetes mellitus with ketoacidosis without coma; K74.60 Unspecified cirrhosis of liver; F32.9 Major depressive disorder, single episode, unspecified; F41.9 Anxiety disorder, unspecified; F12.90 Cannabis use, unspecified, uncomplicated; E66.01 Morbid (severe) obesity due to excess calories; Z68.41 Body mass index [BMI] 40.0-44.9, adult; Z86.19 Personal history of other infectious and parasitic diseases; Z90.710 Acquired absence of both cervix and uterus; Z98.890 Other specified postprocedural states; Z91.040 Latex allergy status; Z88.8 Allergy status to other drugs, medicaments and biological substances
CPT/HCPCS: 49083; P9047

== ENCOUNTER 2021-06-28 12:19 | Inpatient (IN) | payer MEDICARE, MEDICAID ==
[~2021-06-28] VITALS: Ht 170.2 cm; Wt 123.6 kg
[2021-06-28 13:14] LABS: BASOPHILS % (AUTO) 0.3 % (0-1); EOSINOPHILS % (AUTO) 0 % (0-6); HEMATOCRIT 33.2 % (35.0-45.0); HEMOGLOBIN 10.8 g/dl (12.0-16.0); LYMPHOCYTES # (AUTO) 0.3 X10'3 (1.1-4.8); LYMPHOCYTES % (AUTO) 3.7 % (21-51); MEAN CORPUSCULAR HEMOGLOBIN 31.4 PG (27.0-31.0); MEAN CORPUSCULAR HGB CONC 32.4 g/dL (33.0-36.5); MEAN CORPUSCULAR VOLUME 96.8 FL (78-98); MEAN PLATELET VOLUME 8.5 FL (7.4-10.4); MONOCYTES # (AUTO) 0.3 X10'3 (0-0.9); MONOCYTES % (AUTO) 3.7 % (2-12); NEUTROPHILS # (AUTO) 6.5 X10'3 (1.8-7.7); NEUTROPHILS % (AUTO) 92.3 % (42-75); PLATELET COUNT 201 X10'3 (140-440); RED BLOOD COUNT 3.43 X10'6 (4.20-5.60); RED CELL DISTRIBUTION WIDTH 15.1 % (11.5-14.5)
[2021-06-28 13:17] LABS: ALANINE AMINOTRANSFERASE 15 U/L (12-78); ALBUMIN 2.2 G/DL (3.4-5.0); ALBUMIN/GLOBULIN RATIO 0.7 (1.1-1.5); ALKALINE PHOSPHATASE 66 IU/L (46-116); ANION GAP 10 (8-16); BILIRUBIN,TOTAL 0.7 MG/DL (0.1-1.0); BLOOD UREA NITROGEN 49 MG/DL (7-18); BUN/CREATININE RATIO 25.5 (6.6-38.0); CALCIUM 6.2 MG/DL (8.5-10.1); CHLORIDE 116 MMOL/L (99-107); CREATININE 1.92 MG/DL (0.40-0.90); GLUCOSE 74 MG/DL (70-104); SODIUM 144 MMOL/L (135-145); TOTAL CARBON DIOXIDE 17.8 MMOL/L (24-32); TOTAL PROTEIN 5.4 G/DL (6.4-8.2); eGFR 26 ML/MIN
[2021-06-28 13:25] LABS: ETHANOL < 0.010 GM/DL (0.0-0.010)
[2021-06-28 13:35] LABS: ASPARTATE AMINO TRANSFERASE 23 U/L (10-37); POTASSIUM 4.8 MMOL/L (3.5-5.1)
[2021-06-28] MEDS ORDERED: ipratropium/albuterol 3ml nebule NEB ONE (14:05)
[2021-06-28 14:24] LABS: ABG BASE EXCESS -8.6 mmol/L (-2.0-2.0); ABG HCO3 20.2 mmol/L (22.0-26.0); ABG OXYGEN SATURATION 89.5 % (94-97); ABG PO2 (T) 59.9 mmHg (75.0-100.0); ALLEN'S TEST Modified; FCOHb 1.4 % (0.0-3.9); FLOW 5 L/min; FMetHb 0.1 % (0.0-1.5); FO2Hb 88.2 % (94-97)
[2021-06-28] MEDS ORDERED: furosemide 10 MG/1 ML 10ml inj IV ONE (14:55)
[2021-06-28 15:33] LABS: COLOR,URINE YELLOW (Yellow); GLUCOSE, URINE NEGATIVE (Neg); KETONES,URINE NEGATIVE (Neg); LEUKOCYTE ESTERASE ,URINE NEGATIVE (Neg); NITRITES, URINE NEGATIVE (Neg); OCCULT BLOOD,URINE MODERATE (Neg); PROTEIN,URINE 30 mg/dl (Neg); UROBILINOGEN,URINE 0.2 E.U/dL (0.2-1.0)
[2021-06-28 15:34] LABS: CLARITY,URINE SLIGHTLY CLOUDY (Clear); UA COLLECTION TYPE FOLEY CATH
[2021-06-28 15:39] LABS: BACTERIA,URINE FEW /HPF (Neg); MUCUS STRANDS NONE SEEN /LPF (Neg); SQUAMOUS EPITHELIAL CELL,UR FEW /LPF (FEW)
[2021-06-28 15:40] LABS: URINE AMPHETAMINE SCREEN NEGATIVE (Neg); URINE BARBITUATE SCREEN NEGATIVE (Neg); URINE BENZODIAZEPINES SCREEN NEGATIVE (Neg); URINE CANNABINOID SCREEN POSITIVE (Neg); URINE COCAINE SCREEN NEGATIVE (Neg); URINE METHADONE SCREEN NEGATIVE (Neg); URINE OPIATE SCREEN NEGATIVE (Neg); URINE PHENCYCLIDINE SCREEN NEGATIVE (Neg)
--- NOTE | 2021-06-28 16:05 | NUR ---
NOTIFIED RUSU REGARDING PT TROPONIN 396. VERBAL ORDER RECEIVED FOR REPEAT ABG. ORDER PLACED RECEIVED.
--- NOTE | 2021-06-28 16:33 | NUR ---
PT BLOOD PRESSURE 111/62 AND 80MG OF LASIX IS ORDERED. EMAR WOULD NOT ALLOW NOTE TO BE MADE-20MG GIVEN AT FIRST AND WILL MONITOR PT BLOOD PRESSURE AND ADMINISTER FURTHER DOSAGE BP ALLOWS. CURRENT PRESSURE AFTER 20MG LASIX IS 96/56
[2021-06-28 17:37] LABS: ABG BASE EXCESS -5.1 mmol/L (-2.0-2.0); ABG HCO3 22.3 mmol/L (22.0-26.0); ABG OXYGEN SATURATION 89.9 % (94-97); ABG PCO2 (T) 52.8 mmHg (32.0-45.0); ABG PO2 (T) 62.2 mmHg (75.0-100.0); ALLEN'S TEST Modified; FMetHb 0.1 % (0.0-1.5); FO2Hb 88.9 % (94-97); RESPIRATORY RATE 20 b/min; TOTAL HEMOGLOBIN 10.4 G/dl (12.0-16.0)
[2021-06-28] MEDS ORDERED: INSU100I31 SQ (17:38)
[2021-06-28] MEDS ORDERED: AMLO10TA13 PO (17:38)
[2021-06-28] MEDS ORDERED: LEVA15HF6 PO (17:38)
[2021-06-28] MEDS ORDERED: ISOS30TA84 PO (17:38)
[2021-06-28] MEDS ORDERED: pramipexole 0.25mg tablet PO PRN (17:45)
[2021-06-28] MEDS ORDERED: levalbuterol 0.63mg/3ml nebule IH PRN (17:45)
--- NOTE | 2021-06-28 17:49 | NUR ---
20mg more of lasix given. bp 123/66. total ordered 80mg, total given at this time 40mg
[2021-06-28] MEDS ORDERED: magnesium hydroxide 30ml (MOM) UD suspension PO PRN (17:50)
[2021-06-28] MEDS ORDERED: mag hydrox/Alum hydrox/simeth 30ml oral suspension PO PRN (17:50)
[2021-06-28] MEDS ORDERED: morphine 2 MG/ML inj. syringe IV PRN ×2 (17:50)
[2021-06-28] MEDS ORDERED: acetaminophen 325mg tablet PO PRN ×2 (17:50)
--- NOTE | 2021-06-28 18:09 | NUR ---
20mg lasix given, total 60mg of ordered 80mg given in total. bp 111/65
--- NOTE | 2021-06-28 18:24 | NUR ---
final 20mg of lasix given. 80mg given of 80mg ordered-order complete.
[2021-06-28] MEDS: budesonide 0.5mg/2ml UD nebule IH SCH (19:37)
[2021-06-28] MEDS: carVEDilol 3.125mg tablet PO SCH (20:00)
[2021-06-28] MEDS: docusate sod 100mg capsule PO SCH ×2 (20:00→21:00)
[2021-06-28] MEDS ORDERED: enoxaparin 100mg/ml syringe SUBCUT SCH (20:00)
[2021-06-28] MEDS: lactulose 20gm/30ml cup PO SCH (20:00)
[2021-06-28] MEDS ORDERED: enoxaparin 60mg/0.6ml syringe SUBCUT SCH (20:00)
[2021-06-28] MEDS: furosemide 10 MG/1 ML 10ml inj IV SCH (20:32)
[2021-06-28] MEDS: traZODone 150mg tablet PO SCH (21:00)
[2021-06-28] MEDS: lamoTRIgine 100mg tablet PO SCH (21:00)
[2021-06-29 01:42] LABS: BASOPHILS % (AUTO) 0.2 % (0-1); EOSINOPHILS % (AUTO) 0.2 % (0-6); HEMATOCRIT 27.7 % (35.0-45.0); HEMOGLOBIN 9.3 g/dl (12.0-16.0); LYMPHOCYTES # (AUTO) 0.4 X10'3 (1.1-4.8); LYMPHOCYTES % (AUTO) 7.1 % (21-51); MEAN CORPUSCULAR HEMOGLOBIN 31.7 PG (27.0-31.0); MEAN CORPUSCULAR HGB CONC 33.4 g/dL (33.0-36.5); MEAN CORPUSCULAR VOLUME 94.8 FL (78-98); MEAN PLATELET VOLUME 8.4 FL (7.4-10.4); MONOCYTES # (AUTO) 0.5 X10'3 (0-0.9); MONOCYTES % (AUTO) 8.6 % (2-12); NEUTROPHILS # (AUTO) 5.1 X10'3 (1.8-7.7); NEUTROPHILS % (AUTO) 83.9 % (42-75); PLATELET COUNT 167 X10'3 (140-440); RED BLOOD COUNT 2.92 X10'6 (4.20-5.60); RED CELL DISTRIBUTION WIDTH 14.9 % (11.5-14.5)
[2021-06-29 02:03] LABS: ALANINE AMINOTRANSFERASE 16 U/L (12-78); ALBUMIN/GLOBULIN RATIO 0.8 (1.1-1.5); ALKALINE PHOSPHATASE 86 IU/L (46-116); ANION GAP 10 (8-16); ASPARTATE AMINO TRANSFERASE 24 U/L (10-37); BILIRUBIN,TOTAL 0.8 MG/DL (0.1-1.0); BLOOD UREA NITROGEN 74 MG/DL (7-18); BUN/CREATININE RATIO 23.5 (6.6-38.0); CALCIUM 8.8 MG/DL (8.5-10.1); CHLORIDE 106 MMOL/L (99-107); CREATININE 3.15 MG/DL (0.40-0.90); GLUCOSE 86 MG/DL (70-104); SODIUM 140 MMOL/L (135-145); TOTAL CARBON DIOXIDE 23.9 MMOL/L (24-32); eGFR 15 ML/MIN
[2021-06-29 02:14] LABS: POTASSIUM 6.3 MMOL/L (3.5-5.1)
[2021-06-29] MEDS ORDERED: albuterol 2.5 MG/3 ML nebule NEB ONE (02:25)
[2021-06-29] MEDS ORDERED: sodium polystyrene sulfonate 15gm/60ml oral suspension PR ONE (03:35)
[2021-06-29] MEDS: budesonide 0.5mg/2ml UD nebule IH SCH ×2 (07:02→20:12)
--- NOTE | 2021-06-29 07:30 | NUR ---
PT INCONT OF STOOL, PT CLEANED AND LINEN CHANGED.
[2021-06-29] MEDS ORDERED: enoxaparin 40mg/0.4ml syringe SUBCUT SCH (08:00)
[2021-06-29 09:09] LABS: ANION GAP 11 (8-16); BLOOD UREA NITROGEN 79 MG/DL (7-18); BUN/CREATININE RATIO 24.6 (6.6-38.0); CALCIUM 8.8 MG/DL (8.5-10.1); CHLORIDE 106 MMOL/L (99-107); CREATININE 3.21 MG/DL (0.40-0.90); GLUCOSE 94 MG/DL (70-104); SODIUM 139 MMOL/L (135-145); TOTAL CARBON DIOXIDE 21.8 MMOL/L (24-32); eGFR 14 ML/MIN
[2021-06-29 09:12] LABS: POTASSIUM 6.5 MMOL/L (3.5-5.1)
--- NOTE | 2021-06-29 09:18 | NUR ---
NOTIFIED DR JACQUES REGARDING CRITICAL POTTASSIUM ,TELE ORDER FOR 1 GM CALCIUM IV ONCE,10 UNIT OF REGULAR INSULIN,D50 AMP IV ONCE,1 AMP BICARB ,60 GM PO KAYEXALATE ONCE. Addendum: 06/29/21 at 0929 by RILEY PER Blanquita RALPH NO NEED TO ADMIN THE LASIX.WILL CONVEY TH EMESSAGE TO PRIMARY NURSE ROLAN HANSEN.
[2021-06-29] MEDS ORDERED: dextrose 50%-water 50ml dispensing syringe IV ONE (09:25)
[2021-06-29] MEDS ORDERED: calcium gluconate inj. 1 GM in normal saline 100ml IV soln 100 ML IV ONE (09:25)
[2021-06-29] MEDS ORDERED: sodium polystyrene sulfonate 15gm/60ml oral suspension PO ONE (09:25)
[2021-06-29] MEDS ORDERED: insulin regular, human 10 units/0.1 ml syringe IV ONE (09:25)
[2021-06-29] MEDS ORDERED: CALCIUM GLUC 1gm/50ml NACL,iso 100 ML IV ONE (09:34)
[2021-06-29] MEDS ORDERED: sodium bicarbonate (8.4%) inj. 1 MEQ/ML ML IV ONE (09:35)
[2021-06-29] MEDS: furosemide 10 MG/1 ML 10ml inj IV SCH (10:42)
--- NOTE | 2021-06-29 10:50 | NUR ---
Pt only has one IV and Dr. Guzman notified that pt is a very difficult IV start. Multiple nurses attempting to start second IV.
[2021-06-29] MEDS: docusate sod 100mg capsule PO SCH ×3 (11:17→21:00)
[2021-06-29] MEDS: lactulose 20gm/30ml cup PO SCH ×2 (11:36→20:00)
[2021-06-29] MEDS: isosorbide mononitrate 30mg tab.SR.24H PO SCH (11:37)
[2021-06-29] MEDS: multivitamins, therapeutics tablet PO SCH (11:37)
[2021-06-29] MEDS: carVEDilol 3.125mg tablet PO SCH ×2 (11:37→20:00)
[2021-06-29] MEDS: lamoTRIgine 100mg tablet PO SCH ×2 (11:38→21:00)
[2021-06-29] MEDS: clopidogrel 75mg tablet PO SCH (11:38)
--- NOTE | 2021-06-29 14:15 | NUR ---
Pt had an very large liquid dark leon BM.
--- NOTE | 2021-06-29 15:26 | NUR ---
Pt had a small bloody nose from L nares.
[2021-06-29 15:39] LABS: ALBUMIN 3.3 G/DL (3.4-5.0); ANION GAP 13 (8-16); BLOOD UREA NITROGEN 76 MG/DL (7-18); BUN/CREATININE RATIO 22.7 (6.6-38.0); CHLORIDE 104 MMOL/L (99-107); CREATININE 3.35 MG/DL (0.40-0.90); POTASSIUM 4.9 MMOL/L (3.5-5.1); SODIUM 140 MMOL/L (135-145); TOTAL CARBON DIOXIDE 22.7 MMOL/L (24-32); eGFR 14 ML/MIN
[2021-06-29 15:41] LABS: GLUCOSE 128 MG/DL (70-104)
--- NOTE | 2021-06-29 16:50 | NUR ---
Break RN: Noted SpO2 to 87%, increased to 5L/NC, SpO2 to 89%. Pt repositioned in [place], lungs with crackles to R side. Dr. Thomas rice.
[2021-06-29] MEDS: ipratropium 0.5 MG/2.5ML nebule NEB PRN (17:42)
--- NOTE | 2021-06-29 19:00 | NUR ---
Up to use the bedside commode. Small liquid BM.
--- NOTE | 2021-06-29 20:31 | NUR ---
RT put pt back on BiPAP: 25/01, FiO2 40%, rate=20.
[2021-06-29] MEDS: traZODone 150mg tablet PO SCH (21:00)
[2021-06-29] MEDS: albumin (human) 25% 100 ML IV solution IV SCH (21:42)
[2021-06-30 05:26] LABS: BASOPHILS # (AUTO) 0.1 X10'3 (0-0.2); EOSINOPHILS # (AUTO) 0.1 X10'3 (0-0.9); EOSINOPHILS % (AUTO) 1.1 % (0-6); HEMATOCRIT 26.1 % (35.0-45.0); HEMOGLOBIN 8.7 g/dl (12.0-16.0); LYMPHOCYTES # (AUTO) 0.6 X10'3 (1.1-4.8); MEAN CORPUSCULAR HEMOGLOBIN 31.7 PG (27.0-31.0); MEAN CORPUSCULAR HGB CONC 33.5 g/dL (33.0-36.5); MEAN CORPUSCULAR VOLUME 94.7 FL (78-98); MEAN PLATELET VOLUME 8.8 FL (7.4-10.4); MONOCYTES # (AUTO) 0.5 X10'3 (0-0.9); MONOCYTES % (AUTO) 9.3 % (2-12); NEUTROPHILS # (AUTO) 4.5 X10'3 (1.8-7.7); NEUTROPHILS % (AUTO) 77.6 % (42-75); PLATELET COUNT 160 X10'3 (140-440); RED BLOOD COUNT 2.76 X10'6 (4.20-5.60); RED CELL DISTRIBUTION WIDTH 15.1 % (11.5-14.5); WHITE BLOOD COUNT 5.8 X10'3 (4.5-11.0)
[2021-06-30 05:30] VITALS: BP 126/57
--- NOTE | 2021-06-30 05:30 | NUR ---
Received pt in bed , respiratory at bedside, pt placed on tele monitor and oxygen 6 liters via NC. Pt oriented to room and staff. Skin care done and pictures taken of the deficit area
[2021-06-30 05:43] LABS: ALANINE AMINOTRANSFERASE 16 U/L (12-78); ALBUMIN 3.1 G/DL (3.4-5.0); ALBUMIN/GLOBULIN RATIO 0.8 (1.1-1.5); ALKALINE PHOSPHATASE 72 IU/L (46-116); ANION GAP 10 (8-16); ASPARTATE AMINO TRANSFERASE 43 U/L (10-37); BILIRUBIN,TOTAL 0.6 MG/DL (0.1-1.0); BLOOD UREA NITROGEN 79 MG/DL (7-18); BUN/CREATININE RATIO 22.8 (6.6-38.0); CALCIUM 8.3 MG/DL (8.5-10.1); CHLORIDE 105 MMOL/L (99-107); CHOL/HDL RATIO 2.6 (0.00-4.99); CHOLESTEROL 134 MG/DL (0-200); CREATININE 3.46 MG/DL (0.40-0.90); GLUCOSE 143 MG/DL (70-104); HDL CHOLESTEROL 52 MG/DL (35-60); LDL CHOLESTEROL 65 MG/DL (50-100); SODIUM 138 MMOL/L (135-145); TOTAL CARBON DIOXIDE 23.5 MMOL/L (24-32); TRIGLYCERIDES 96 MG/DL (20-135); eGFR 13 ML/MIN
[2021-06-30] MEDS: isosorbide mononitrate 30mg tab.SR.24H PO SCH (07:16)
[2021-06-30] MEDS: clopidogrel 75mg tablet PO SCH (07:16)
[2021-06-30] MEDS: carVEDilol 3.125mg tablet PO SCH ×2 (07:16→20:18)
[2021-06-30] MEDS: multivitamins, therapeutics tablet PO SCH (07:16)
[2021-06-30] MEDS: lamoTRIgine 100mg tablet PO SCH ×2 (07:16→20:18)
[2021-06-30] MEDS: lactulose 20gm/30ml cup PO SCH ×2 (07:18→20:00)
[2021-06-30] MEDS: albumin (human) 25% 100 ML IV solution IV SCH ×3 (07:18→17:22)
[2021-06-30] MEDS: docusate sod 100mg capsule PO SCH ×3 (07:30→20:19)
[2021-06-30] MEDS: ipratropium 0.5 MG/2.5ML nebule NEB PRN ×2 (07:44→21:14)
[2021-06-30] MEDS: budesonide 0.5mg/2ml UD nebule IH SCH ×2 (07:44→21:14)
--- NOTE | 2021-06-30 08:21 | NUR ---
ORDERS TO ADD ON THE AMMONIA LEVEL FOR LABS PUT IN PER DR. JACQUES.
[2021-06-30 11:00] VITALS: BP 122/60
[2021-06-30 15:00] VITALS: BP 123/60
[2021-06-30] MEDS: traZODone 150mg tablet PO SCH (20:18)
[2021-06-30] MEDS: HYDROcodone/acetaminophen 5mg/325mg tablet PO PRN (20:28)
[2021-06-30 22:00] VITALS: BP 119/59
[2021-07-01] VITALS (8 sets, daily range): BP systolic 102–132; BP diastolic 51–64
[2021-07-01] MEDS: ipratropium 0.5 MG/2.5ML nebule NEB PRN ×3 (03:43→20:09)
[2021-07-01] MEDS ORDERED: MESSAGE TO PHARMACY PO ONE (05:00)
[2021-07-01] MEDS ORDERED: glucagon, human recombinant 1mg kit SUBCUT PRN (05:05)
[2021-07-01] MEDS ORDERED: dextrose ORAL solution 15 GM/59 ML bottle PO PRN ×2 (05:05)
[2021-07-01] MEDS ORDERED: dextrose 50%-water 50ml dispensing syringe IV PRN ×2 (05:05)
--- NOTE | 2021-07-01 06:17 | NUR ---
Patient in room PCU 3025. I have received report from Tova HANSEN and had the opportunity to ask questions and assume patient care.
--- NOTE | 2021-07-01 07:28 | NUR ---
Diabetes consult: Noted A1C 5.3 on 05/08/21, takes insulin at home. Well controlled, DM ed not indicated at this time. Addendum: 07/01/21 at [address] Amended: Links added.
[2021-07-01] MEDS: docusate sod 100mg capsule PO SCH ×3 (08:00→21:18)
[2021-07-01] MEDS: lactulose 20gm/30ml cup PO SCH ×2 (08:00→19:26)
[2021-07-01] MEDS: isosorbide mononitrate 30mg tab.SR.24H PO SCH (09:08)
[2021-07-01] MEDS: carVEDilol 3.125mg tablet PO SCH ×2 (09:11→19:24)
[2021-07-01] MEDS: multivitamins, therapeutics tablet PO SCH (09:12)
[2021-07-01] MEDS: lamoTRIgine 100mg tablet PO SCH ×2 (09:13→21:18)
[2021-07-01] MEDS: clopidogrel 75mg tablet PO SCH (09:14)
[2021-07-01 09:21] LABS: BASOPHILS % (AUTO) 0.5 % (0-1); EOSINOPHILS # (AUTO) 0.2 X10'3 (0-0.9); EOSINOPHILS % (AUTO) 3.3 % (0-6); HEMATOCRIT 27.4 % (35.0-45.0); HEMOGLOBIN 9.1 g/dl (12.0-16.0); LYMPHOCYTES # (AUTO) 0.4 X10'3 (1.1-4.8); LYMPHOCYTES % (AUTO) 8.1 % (21-51); MEAN CORPUSCULAR HEMOGLOBIN 31.8 PG (27.0-31.0); MEAN CORPUSCULAR HGB CONC 33.1 g/dL (33.0-36.5); MEAN PLATELET VOLUME 8.4 FL (7.4-10.4); MONOCYTES # (AUTO) 0.4 X10'3 (0-0.9); MONOCYTES % (AUTO) 8.6 % (2-12); NEUTROPHILS # (AUTO) 3.7 X10'3 (1.8-7.7); NEUTROPHILS % (AUTO) 79.5 % (42-75); PLATELET COUNT 138 X10'3 (140-440); RED BLOOD COUNT 2.86 X10'6 (4.20-5.60); WHITE BLOOD COUNT 4.7 X10'3 (4.5-11.0)
[2021-07-01 09:30] LABS: ALANINE AMINOTRANSFERASE 18 U/L (12-78); ALBUMIN 3.5 G/DL (3.4-5.0); ALBUMIN/GLOBULIN RATIO 1.1 (1.1-1.5); ALKALINE PHOSPHATASE 66 IU/L (46-116); ANION GAP 10 (8-16); ASPARTATE AMINO TRANSFERASE 26 U/L (10-37); BILIRUBIN,TOTAL 0.8 MG/DL (0.1-1.0); BLOOD UREA NITROGEN 86 MG/DL (7-18); BUN/CREATININE RATIO 23.4 (6.6-38.0); CALCIUM 8.2 MG/DL (8.5-10.1); CHLORIDE 101 MMOL/L (99-107); CREATININE 3.68 MG/DL (0.40-0.90); GLUCOSE 183 MG/DL (70-104); POTASSIUM 4.2 MMOL/L (3.5-5.1); SODIUM 135 MMOL/L (135-145); TOTAL CARBON DIOXIDE 24.2 MMOL/L (24-32); TOTAL PROTEIN 6.7 G/DL (6.4-8.2); eGFR 12 ML/MIN
[2021-07-01] MEDS: budesonide 0.5mg/2ml UD nebule IH SCH ×2 (09:34→20:09)
[2021-07-01 10:08] LABS: HEMOGLOBIN A1C 5.6 % (4.5-6.2)
[2021-07-01] MEDS ORDERED: albumin (human) 25% 100 ML IV solution IV ONE ×2 (11:25→18:40)
[2021-07-01] MEDS ORDERED: midodrine 5mg tablet PO SCH (12:00)
[2021-07-01 12:18] LABS: MAGNESIUM 2.6 MG/DL (1.5-2.4); PHOSPHORUS 5.1 MG/DL (2.3-4.5)
[2021-07-01 12:21] LABS: APTT 25 SECONDS (22-32)
[2021-07-01] MEDS: octreotide 100mcg/1 ml ampule SQ SCH (16:00)
--- NOTE | 2021-07-01 18:00 | NUR ---
Patient in room PCU 3025. I have received report from SHARON HANSEN and had the opportunity to ask questions and assume patient care.
[2021-07-01] MEDS: HYDROcodone/acetaminophen 5mg/325mg tablet PO PRN (19:24)
[2021-07-01] MEDS: midodrine tablet 2.5 MG TABLET PO SCH (19:43)
[2021-07-01] MEDS: insulin glargine (Lantus) pen - multi-dose SQ SCH (21:00)
[2021-07-01] MEDS: traZODone 150mg tablet PO SCH (21:18)
[2021-07-02] MEDS: octreotide 100mcg/1 ml ampule SQ SCH ×3 (00:55→16:00)
[2021-07-02 02:00] VITALS: BP 101/50
[2021-07-02 06:00] VITALS: BP 133/64
--- NOTE | 2021-07-02 06:06 | NUR ---
Patient in room PCU 3025. I have received report from Sandra HANSEN and had the opportunity to ask questions and assume patient care.
--- NOTE | 2021-07-02 06:31 | NUR ---
Problems reprioritized. Patient report given, questions answered & plan of care reviewed with SHARON HANSEN.
[2021-07-02 06:38] LABS: BASOPHILS % (AUTO) 0.5 % (0-1); EOSINOPHILS # (AUTO) 0.2 X10'3 (0-0.9); EOSINOPHILS % (AUTO) 4.4 % (0-6); LYMPHOCYTES # (AUTO) 0.5 X10'3 (1.1-4.8); LYMPHOCYTES % (AUTO) 13.5 % (21-51); MONOCYTES # (AUTO) 0.4 X10'3 (0-0.9); NEUTROPHILS % (AUTO) 72.6 % (42-75)
[2021-07-02 06:40] LABS: HEMATOCRIT 27.2 % (35.0-45.0); MEAN CORPUSCULAR HEMOGLOBIN 31.5 PG (27.0-31.0); MEAN CORPUSCULAR HGB CONC 33.1 g/dL (33.0-36.5); MEAN CORPUSCULAR VOLUME 95.2 FL (78-98); NEUTROPHILS # (AUTO) 2.8 X10'3 (1.8-7.7); PLATELET COUNT 135 X10'3 (140-440); RED BLOOD COUNT 2.86 X10'6 (4.20-5.60); WHITE BLOOD COUNT 3.9 X10'3 (4.5-11.0)
[2021-07-02 07:02] LABS: ANION GAP 8 (8-16); BILIRUBIN,TOTAL 0.6 MG/DL (0.1-1.0); BLOOD UREA NITROGEN 94 MG/DL (7-18); BUN/CREATININE RATIO 24.2 (6.6-38.0); CALCIUM 7.9 MG/DL (8.5-10.1); CHLORIDE 101 MMOL/L (99-107); CREATININE 3.88 MG/DL (0.40-0.90); GLUCOSE 187 MG/DL (70-104); MAGNESIUM 2.6 MG/DL (1.5-2.4); PHOSPHORUS 6.1 MG/DL (2.3-4.5); POTASSIUM 4.9 MMOL/L (3.5-5.1); SODIUM 135 MMOL/L (135-145); TOTAL CARBON DIOXIDE 26.3 MMOL/L (24-32); eGFR 12 ML/MIN
[2021-07-02 07:03] LABS: ALANINE AMINOTRANSFERASE 13 U/L (12-78); ALBUMIN 3.5 G/DL (3.4-5.0); ALBUMIN/GLOBULIN RATIO 1.1 (1.1-1.5); ALKALINE PHOSPHATASE 55 IU/L (46-116); ASPARTATE AMINO TRANSFERASE 20 U/L (10-37); TOTAL PROTEIN 6.7 G/DL (6.4-8.2)
[2021-07-02] MEDS: docusate sod 100mg capsule PO SCH ×3 (08:00→20:04)
[2021-07-02] MEDS: budesonide 0.5mg/2ml UD nebule IH SCH ×2 (08:35→20:18)
[2021-07-02] MEDS: lamoTRIgine 100mg tablet PO SCH ×2 (08:40→20:03)
[2021-07-02] MEDS: midodrine tablet 2.5 MG TABLET PO SCH ×3 (08:40→16:08)
[2021-07-02] MEDS: isosorbide mononitrate 30mg tab.SR.24H PO SCH (08:40)
[2021-07-02] MEDS: lactulose 20gm/30ml cup PO SCH ×2 (08:40→20:03)
[2021-07-02] MEDS: clopidogrel 75mg tablet PO SCH (08:40)
[2021-07-02] MEDS: carVEDilol 3.125mg tablet PO SCH ×2 (08:40→20:03)
[2021-07-02] MEDS: multivitamins, therapeutics tablet PO SCH (08:40)
[2021-07-02] MEDS: insulin Lispro (HumaLOG) vial - multi-dose SQ SCH ×2 (08:51→13:38)
[2021-07-02 11:00] VITALS: BP 122/53
[2021-07-02] MEDS: nystatin 15 GM powder TP SCH ×3 (11:04→20:32)
[2021-07-02 15:00] VITALS: BP 120/52
[2021-07-02 18:00] VITALS: BP 113/51
--- NOTE | 2021-07-02 18:09 | NUR ---
Problems reprioritized. Patient report given, questions answered & plan of care reviewed with Miguelina HANSEN, patient stable at transfer of care.
[2021-07-02] MEDS: traZODone 150mg tablet PO SCH (20:02)
[2021-07-02] MEDS: ipratropium 0.5 MG/2.5ML nebule NEB PRN (20:18)
[2021-07-02 22:00] VITALS: BP 124/58
[2021-07-02] MEDS: insulin glargine (Lantus) pen - multi-dose SQ SCH (22:09)
[2021-07-03] MEDS: octreotide 100mcg/1 ml ampule SQ SCH ×3 (00:20→16:00)
[2021-07-03 02:00] VITALS: BP 128/51
[2021-07-03 06:00] VITALS: BP 122/53
--- NOTE | 2021-07-03 06:05 | NUR ---
Patient in room PCU 3025. I have received report from Miguelina HANSEN and had the opportunity to ask questions and assume patient care.
[2021-07-03] MEDS: budesonide 0.5mg/2ml UD nebule IH SCH ×2 (07:15→20:32)
[2021-07-03 07:41] LABS: BASOPHILS % (AUTO) 0.4 % (0-1); EOSINOPHILS # (AUTO) 0.2 X10'3 (0-0.9); EOSINOPHILS % (AUTO) 4.2 % (0-6); HEMATOCRIT 27.3 % (35.0-45.0); HEMOGLOBIN 9.2 g/dl (12.0-16.0); LYMPHOCYTES # (AUTO) 0.4 X10'3 (1.1-4.8); LYMPHOCYTES % (AUTO) 7.9 % (21-51); MEAN CORPUSCULAR HEMOGLOBIN 31.9 PG (27.0-31.0); MEAN CORPUSCULAR HGB CONC 33.6 g/dL (33.0-36.5); MEAN CORPUSCULAR VOLUME 94.8 FL (78-98); MEAN PLATELET VOLUME 8.4 FL (7.4-10.4); MONOCYTES # (AUTO) 0.4 X10'3 (0-0.9); MONOCYTES % (AUTO) 9.2 % (2-12); NEUTROPHILS # (AUTO) 3.7 X10'3 (1.8-7.7); NEUTROPHILS % (AUTO) 78.3 % (42-75); PLATELET COUNT 128 X10'3 (140-440); RED BLOOD COUNT 2.88 X10'6 (4.20-5.60); RED CELL DISTRIBUTION WIDTH 14.9 % (11.5-14.5); WHITE BLOOD COUNT 4.7 X10'3 (4.5-11.0)
[2021-07-03 07:56] LABS: ALANINE AMINOTRANSFERASE 14 U/L (12-78); ALBUMIN 3.1 G/DL (3.4-5.0); ALKALINE PHOSPHATASE 54 IU/L (46-116); ANION GAP 7 (8-16); ASPARTATE AMINO TRANSFERASE 20 U/L (10-37); BILIRUBIN,TOTAL 0.5 MG/DL (0.1-1.0); BLOOD UREA NITROGEN 94 MG/DL (7-18); BUN/CREATININE RATIO 25.1 (6.6-38.0); CALCIUM 7.8 MG/DL (8.5-10.1); CHLORIDE 103 MMOL/L (99-107); CREATININE 3.74 MG/DL (0.40-0.90); GLUCOSE 186 MG/DL (70-104); MAGNESIUM 2.7 MG/DL (1.5-2.4); PHOSPHORUS 5.7 MG/DL (2.3-4.5); SODIUM 136 MMOL/L (135-145); TOTAL CARBON DIOXIDE 25.8 MMOL/L (24-32); TOTAL PROTEIN 6.3 G/DL (6.4-8.2); eGFR 12 ML/MIN
[2021-07-03] MEDS: clopidogrel 75mg tablet PO SCH (08:04)
[2021-07-03] MEDS: lactulose 20gm/30ml cup PO SCH ×2 (08:04→20:34)
[2021-07-03] MEDS: midodrine tablet 2.5 MG TABLET PO SCH ×3 (08:05→16:03)
[2021-07-03] MEDS: carVEDilol 3.125mg tablet PO SCH ×2 (08:05→20:00)
[2021-07-03] MEDS: lamoTRIgine 100mg tablet PO SCH ×2 (08:05→20:35)
[2021-07-03] MEDS: multivitamins, therapeutics tablet PO SCH (08:05)
[2021-07-03] MEDS: isosorbide mononitrate 30mg tab.SR.24H PO SCH (08:05)
[2021-07-03] MEDS: docusate sod 100mg capsule PO SCH ×3 (08:05→21:00)
[2021-07-03] MEDS: nystatin 15 GM powder TP SCH ×3 (08:06→20:42)
[2021-07-03] MEDS: insulin Lispro (HumaLOG) vial - multi-dose SQ SCH ×2 (09:35→20:33)
--- NOTE | 2021-07-03 11:22 | NUR ---
Initial: Pt admit for acute hypercapnic respiratory failure, bilat pleural effusions, JOHNNIE, possible acute NSTEMI and possible acute on chronic cor pulmonale. Pt with h/o ESLD requiring frequent paracentesis per MD note. Pt s/p paracentesis 07/01 with 6750 mL fluid removed per report. Pt on a heart healthy CHO controlled diet with fluctuating PO intake, initially with 75% PO intake which declined to 0-25%, however back up to 75-100% PO intake following paracentesis. New A1c this admit suggests continuance of good DM management with A1c 5.6%. LBM 07/01, documented with diarrhea. Pt receiving routine Lactulose and Colace BID. No nutrition intervention implemented at this time. Will continue to follow. Recommendations: 1) Continue heart healthy diet; consider discontinuing CHO controlled diet given A1c 5.6% and utilize glycemic protocol for BG management; monitor need for renal diet 2) Routine bowel care 3) Scaled weight this admit; weekly scaled weights thereafter Addendum: 07/03/21 at [address] Amended: Links added.
[2021-07-03 15:00] VITALS: BP 132/58
[2021-07-03 18:00] VITALS: BP 139/52
--- NOTE | 2021-07-03 18:37 | NUR ---
Problems reprioritized. Patient report given, questions answered & plan of care reviewed with Nandini HANSEN, patient stable at transfer of care.
--- NOTE | 2021-07-03 18:51 | NUR ---
Patient in room PCU 3025. I have received report from TYRONE Prasad and had the opportunity to ask questions and assume patient care.
[2021-07-03] MEDS: traZODone 150mg tablet PO SCH (20:34)
[2021-07-03] MEDS: insulin glargine (Lantus) pen - multi-dose SQ SCH (21:45)
[2021-07-03 22:00] VITALS: BP 116/50
[2021-07-04] MEDS: octreotide 100mcg/1 ml ampule SQ SCH ×3 (00:11→16:10)
[2021-07-04 02:00] VITALS: BP_SYST 128; BP_SYST 136; BP_DIAS 51; BP_DIAS 61
--- NOTE | 2021-07-04 06:29 | NUR ---
Problems reprioritized. Patient report given, questions answered & plan of care reviewed with TYRONE Yeh.
[2021-07-04 06:33] LABS: MAGNESIUM 2.7 MG/DL (1.5-2.4); PHOSPHORUS 5.3 MG/DL (2.3-4.5)
[2021-07-04 07:00] VITALS: BP 94/52
--- NOTE | 2021-07-04 07:03 | NUR ---
Patient in room PCU 3025B. I have received report from TYRONE OJEDA and had the opportunity to ask questions and assume patient care.
[2021-07-04] MEDS: budesonide 0.5mg/2ml UD nebule IH SCH ×2 (07:22→20:20)
[2021-07-04] MEDS: midodrine tablet 2.5 MG TABLET PO SCH ×3 (08:00→16:09)
[2021-07-04 08:10] LABS: ANION GAP 10 (8-16); BLOOD UREA NITROGEN 93 MG/DL (7-18); BUN/CREATININE RATIO 26.5 (6.6-38.0); CHLORIDE 105 MMOL/L (99-107); CREATININE 3.51 MG/DL (0.40-0.90); GLUCOSE 177 MG/DL (70-104); SODIUM 138 MMOL/L (135-145); TOTAL CARBON DIOXIDE 23.1 MMOL/L (24-32); eGFR 13 ML/MIN
[2021-07-04 11:00] VITALS: BP 138/54
[2021-07-04] MEDS: clopidogrel 75mg tablet PO SCH (11:41)
[2021-07-04] MEDS: lamoTRIgine 100mg tablet PO SCH ×2 (11:41→21:40)
[2021-07-04] MEDS: multivitamins, therapeutics tablet PO SCH (11:41)
[2021-07-04] MEDS: isosorbide mononitrate 30mg tab.SR.24H PO SCH (11:41)
[2021-07-04] MEDS: carVEDilol 3.125mg tablet PO SCH ×2 (11:42→20:00)
[2021-07-04] MEDS: docusate sod 100mg capsule PO SCH ×3 (11:42→21:00)
[2021-07-04] MEDS: nystatin 15 GM powder TP SCH ×3 (11:45→21:40)
[2021-07-04] MEDS: lactulose 20gm/30ml cup PO SCH ×2 (11:51→20:00)
[2021-07-04] MEDS: HYDROcodone/acetaminophen 5mg/325mg tablet PO PRN (12:28)
[2021-07-04] MEDS: insulin Lispro (HumaLOG) vial - multi-dose SQ SCH (14:55)
[2021-07-04 15:00] VITALS: BP 120/52
[2021-07-04 18:00] VITALS: BP 129/57
--- NOTE | 2021-07-04 18:45 | NUR ---
Problems reprioritized. Patient report given, questions answered & plan of care reviewed with TYRONE CHU.
[2021-07-04] MEDS: insulin glargine (Lantus) pen - multi-dose SQ SCH (21:40)
[2021-07-04] MEDS: traZODone 150mg tablet PO SCH (21:41)
[2021-07-05 04:00] VITALS: BP 132/61
[2021-07-05] MEDS: HYDROcodone/acetaminophen 5mg/325mg tablet PO PRN (05:06)
[2021-07-05 06:00] VITALS: BP 137/42
[2021-07-05 06:03] LABS: BASOPHILS % (AUTO) 0.3 % (0-1); EOSINOPHILS # (AUTO) 0.2 X10'3 (0-0.9); EOSINOPHILS % (AUTO) 3.8 % (0-6); HEMATOCRIT 31.2 % (35.0-45.0); HEMOGLOBIN 10.5 g/dl (12.0-16.0); LYMPHOCYTES # (AUTO) 0.4 X10'3 (1.1-4.8); LYMPHOCYTES % (AUTO) 7.2 % (21-51); MEAN CORPUSCULAR HEMOGLOBIN 31.8 PG (27.0-31.0); MEAN CORPUSCULAR HGB CONC 33.5 g/dL (33.0-36.5); MEAN PLATELET VOLUME 8.7 FL (7.4-10.4); MONOCYTES # (AUTO) 0.4 X10'3 (0-0.9); MONOCYTES % (AUTO) 6.2 % (2-12); NEUTROPHILS # (AUTO) 5.1 X10'3 (1.8-7.7); NEUTROPHILS % (AUTO) 82.5 % (42-75); PLATELET COUNT 138 X10'3 (140-440); RED BLOOD COUNT 3.29 X10'6 (4.20-5.60); RED CELL DISTRIBUTION WIDTH 14.6 % (11.5-14.5); WHITE BLOOD COUNT 6.2 X10'3 (4.5-11.0)
[2021-07-05 06:10] LABS: ALBUMIN 3.2 G/DL (3.4-5.0); ANION GAP 5 (8-16); BLOOD UREA NITROGEN 89 MG/DL (7-18); BUN/CREATININE RATIO 27.8 (6.6-38.0); CALCIUM 8.5 MG/DL (8.5-10.1); CHLORIDE 104 MMOL/L (99-107); GLUCOSE 203 MG/DL (70-104); MAGNESIUM 2.8 MG/DL (1.5-2.4); PHOSPHORUS 5.6 MG/DL (2.3-4.5); POTASSIUM 4.9 MMOL/L (3.5-5.1); SODIUM 136 MMOL/L (135-145); TOTAL CARBON DIOXIDE 27.3 MMOL/L (24-32); eGFR 15 ML/MIN
[2021-07-05] MEDS: docusate sod 100mg capsule PO SCH ×3 (08:00→20:49)
[2021-07-05] MEDS: carVEDilol 3.125mg tablet PO SCH ×2 (08:00→20:48)
[2021-07-05] MEDS: nystatin 15 GM powder TP SCH ×3 (08:00→21:00)
[2021-07-05] MEDS: budesonide 0.5mg/2ml UD nebule IH SCH ×2 (09:00→21:00)
[2021-07-05] MEDS: lactulose 20gm/30ml cup PO SCH (09:21)
[2021-07-05] MEDS: lamoTRIgine 100mg tablet PO SCH ×2 (09:24→21:00)
[2021-07-05] MEDS: multivitamins, therapeutics tablet PO SCH (09:25)
[2021-07-05] MEDS: clopidogrel 75mg tablet PO SCH (09:25)
[2021-07-05] MEDS: octreotide 100mcg/1 ml ampule SQ SCH ×3 (09:32→17:32)
--- NOTE | 2021-07-05 09:39 | NUR ---
Dr. Acharya states okay to give Coreg, Imdur, and Midodrine with BP 137/42 and HR 52
[2021-07-05] MEDS: isosorbide mononitrate 30mg tab.SR.24H PO SCH (09:41)
[2021-07-05] MEDS: midodrine tablet 2.5 MG TABLET PO SCH ×3 (09:41→17:34)
[2021-07-05] MEDS: insulin Lispro (HumaLOG) vial - multi-dose SQ SCH ×2 (10:00→13:30)
[2021-07-05 11:00] VITALS: BP 134/66
[2021-07-05 15:00] VITALS: BP 131/58
[2021-07-05] MEDS: ondansetron/PF 4mg/2ml inj IV PRN (17:50)
[2021-07-05 18:00] VITALS: BP 128/55
[2021-07-05] MEDS: traZODone 150mg tablet PO SCH (21:00)
[2021-07-05] MEDS: insulin glargine (Lantus) pen - multi-dose SQ SCH (21:00)
[2021-07-05 22:00] VITALS: BP 121/30
[2021-07-06] MEDS: octreotide 100mcg/1 ml ampule SQ SCH ×3 (00:49→17:29)
[2021-07-06 02:00] VITALS: BP 130/62
[2021-07-06 06:00] VITALS: BP 137/54
[2021-07-06 07:18] LABS: BASOPHILS % (AUTO) 0.5 % (0-1); EOSINOPHILS # (AUTO) 0.2 X10'3 (0-0.9); EOSINOPHILS % (AUTO) 4.5 % (0-6); HEMATOCRIT 29.4 % (35.0-45.0); HEMOGLOBIN 9.7 g/dl (12.0-16.0); LYMPHOCYTES # (AUTO) 0.1 X10'3 (1.1-4.8); LYMPHOCYTES % (AUTO) 2.7 % (21-51); MEAN CORPUSCULAR HEMOGLOBIN 31.4 PG (27.0-31.0); MEAN CORPUSCULAR VOLUME 95.2 FL (78-98); MEAN PLATELET VOLUME 8.5 FL (7.4-10.4); MONOCYTES # (AUTO) 0.3 X10'3 (0-0.9); MONOCYTES % (AUTO) 6.1 % (2-12); NEUTROPHILS # (AUTO) 4.5 X10'3 (1.8-7.7); NEUTROPHILS % (AUTO) 86.2 % (42-75); PLATELET COUNT 130 X10'3 (140-440); RED BLOOD COUNT 3.09 X10'6 (4.20-5.60); RED CELL DISTRIBUTION WIDTH 14.7 % (11.5-14.5); WHITE BLOOD COUNT 5.2 X10'3 (4.5-11.0)
[2021-07-06] MEDS: ondansetron/PF 4mg/2ml inj IV PRN ×2 (07:48→17:26)
[2021-07-06 07:53] LABS: ALANINE AMINOTRANSFERASE 16 U/L (12-78); ALBUMIN 2.9 G/DL (3.4-5.0); ALBUMIN/GLOBULIN RATIO 0.9 (1.1-1.5); ALKALINE PHOSPHATASE 60 IU/L (46-116); ANION GAP 7 (8-16); ASPARTATE AMINO TRANSFERASE 20 U/L (10-37); BILIRUBIN,TOTAL 0.7 MG/DL (0.1-1.0); BLOOD UREA NITROGEN 85 MG/DL (7-18); CALCIUM 8.2 MG/DL (8.5-10.1); CHLORIDE 104 MMOL/L (99-107); CREATININE 3.04 MG/DL (0.40-0.90); GLUCOSE 178 MG/DL (70-104); MAGNESIUM 2.4 MG/DL (1.5-2.4); POTASSIUM 5.3 MMOL/L (3.5-5.1); SODIUM 137 MMOL/L (135-145); TOTAL CARBON DIOXIDE 26.4 MMOL/L (24-32); TOTAL PROTEIN 6.3 G/DL (6.4-8.2); eGFR 15 ML/MIN
[2021-07-06] MEDS ORDERED: lactulose 20gm/30ml cup PO SCH (08:00)
[2021-07-06] MEDS: docusate sod 100mg capsule PO SCH ×3 (08:00→20:01)
[2021-07-06] MEDS: carVEDilol 3.125mg tablet PO SCH ×2 (08:00→19:52)
[2021-07-06] MEDS: budesonide 0.5mg/2ml UD nebule IH SCH ×2 (08:25→21:00)
[2021-07-06] MEDS: lamoTRIgine 100mg tablet PO SCH ×2 (08:43→19:52)
[2021-07-06] MEDS: multivitamins, therapeutics tablet PO SCH (08:43)
[2021-07-06] MEDS: HYDROcodone/acetaminophen 5mg/325mg tablet PO PRN (08:43)
[2021-07-06] MEDS: isosorbide mononitrate 30mg tab.SR.24H PO SCH ×2 (08:44→15:14)
[2021-07-06] MEDS: clopidogrel 75mg tablet PO SCH (08:44)
[2021-07-06] MEDS: midodrine tablet 2.5 MG TABLET PO SCH ×3 (08:44→15:13)
[2021-07-06] MEDS: nystatin 15 GM powder TP SCH ×3 (08:50→19:59)
--- NOTE | 2021-07-06 10:02 | NUR ---
Page to Dr. Acharya [id number] Rayne Cortes- Having Nausea and vomiting. C/O abdominal pain. [place] [id number] Order was placed for Reglan 5mg IV q8 PRN
[2021-07-06] MEDS: metoclopramide 5 mg/ml inj IV PRN ×2 (10:23→19:52)
[2021-07-06 11:00] VITALS: BP 117/50
[2021-07-06] MEDS: insulin Lispro (HumaLOG) vial - multi-dose SQ SCH ×2 (13:35→19:48)
[2021-07-06 15:00] VITALS: BP 119/44
[2021-07-06] MEDS: lactulose 20gm/30ml cup PO SCH ×3 (15:08→19:53)
[2021-07-06] MEDS: rifaximin 550mg tablet PO SCH (17:31)
[2021-07-06 18:00] VITALS: BP 139/61
--- NOTE | 2021-07-06 18:00 | NUR ---
Problems reprioritized. Patient report given, questions answered & plan of care reviewed with Kraig HANSEN.
[2021-07-06] MEDS: traZODone 150mg tablet PO SCH (19:52)
[2021-07-06] MEDS: insulin glargine (Lantus) pen - multi-dose SQ SCH (21:00)
[2021-07-06 22:00] VITALS: BP 134/63
[2021-07-07] MEDS: lactulose 20gm/30ml cup PO SCH ×4 (04:09→13:21)
[2021-07-07 05:00] VITALS: BP 114/46
[2021-07-07 06:00] VITALS: BP 99/56
[2021-07-07 07:35] LABS: ALANINE AMINOTRANSFERASE 19 U/L (12-78); ALBUMIN 2.9 G/DL (3.4-5.0); ALKALINE PHOSPHATASE 62 IU/L (46-116); ANION GAP 6 (8-16); ASPARTATE AMINO TRANSFERASE 25 U/L (10-37); BILIRUBIN,TOTAL 0.5 MG/DL (0.1-1.0); BLOOD UREA NITROGEN 79 MG/DL (7-18); BUN/CREATININE RATIO 27.1 (6.6-38.0); CALCIUM 8.3 MG/DL (8.5-10.1); CHLORIDE 106 MMOL/L (99-107); CREATININE 2.92 MG/DL (0.40-0.90); GLUCOSE 148 MG/DL (70-104); MAGNESIUM 2.7 MG/DL (1.5-2.4); PHOSPHORUS 4.5 MG/DL (2.3-4.5); SODIUM 139 MMOL/L (135-145); TOTAL CARBON DIOXIDE 26.8 MMOL/L (24-32); TOTAL PROTEIN 5.9 G/DL (6.4-8.2); eGFR 16 ML/MIN
[2021-07-07] MEDS: nystatin 15 GM powder TP SCH ×2 (08:00→13:17)
[2021-07-07 08:41] LABS: BASOPHILS % (AUTO) 1.2 % (0-1); EOSINOPHILS # (AUTO) 0.2 X10'3 (0-0.9); EOSINOPHILS % (AUTO) 6.6 % (0-6); HEMATOCRIT 28.1 % (35.0-45.0); HEMOGLOBIN 9.3 g/dl (12.0-16.0); LYMPHOCYTES # (AUTO) 0.3 X10'3 (1.1-4.8); LYMPHOCYTES % (AUTO) 8.6 % (21-51); MEAN CORPUSCULAR HEMOGLOBIN 31.3 PG (27.0-31.0); MEAN CORPUSCULAR HGB CONC 33.2 g/dL (33.0-36.5); MEAN CORPUSCULAR VOLUME 94.3 FL (78-98); MEAN PLATELET VOLUME 8.8 FL (7.4-10.4); MONOCYTES # (AUTO) 0.5 X10'3 (0-0.9); MONOCYTES % (AUTO) 13.1 % (2-12); NEUTROPHILS # (AUTO) 2.5 X10'3 (1.8-7.7); NEUTROPHILS % (AUTO) 70.5 % (42-75); PLATELET COUNT 122 X10'3 (140-440); RED BLOOD COUNT 2.98 X10'6 (4.20-5.60); RED CELL DISTRIBUTION WIDTH 14.5 % (11.5-14.5); WHITE BLOOD COUNT 3.5 X10'3 (4.5-11.0)
[2021-07-07] MEDS: budesonide 0.5mg/2ml UD nebule IH SCH (08:51)
--- NOTE | 2021-07-07 09:11 | NUR ---
PRESENTED TO PATIENT'S ROOM FOR PARACENTESIS. PATIENT ADAMENTLY REFUSED HER PARA TODAY DUE TO THE FACT THAT SHE "WAS JUST DRAINED." SHE WOULD LIKE US TO RETURN ON MONDAY. PATIENT PLACED ON THE SCHEDULE FOR MONDAY. WE WILL DO OUR BEST TO ACCOMMODATE.
[2021-07-07] MEDS: insulin Lispro (HumaLOG) vial - multi-dose SQ SCH ×2 (09:19→13:23)
[2021-07-07] MEDS: multivitamins, therapeutics tablet PO SCH (09:28)
[2021-07-07] MEDS: docusate sod 100mg capsule PO SCH (09:28)
[2021-07-07] MEDS: midodrine tablet 2.5 MG TABLET PO SCH ×2 (09:29→13:21)
[2021-07-07] MEDS: clopidogrel 75mg tablet PO SCH (09:29)
[2021-07-07] MEDS: isosorbide mononitrate 30mg tab.SR.24H PO SCH ×2 (09:29)
[2021-07-07] MEDS: lamoTRIgine 100mg tablet PO SCH (09:29)
[2021-07-07] MEDS: carVEDilol 3.125mg tablet PO SCH (09:29)
[2021-07-07] MEDS: rifaximin 550mg tablet PO SCH (09:30)
[2021-07-07] MEDS: octreotide 100mcg/1 ml ampule SQ SCH ×2 (09:46)
[2021-07-07 11:00] VITALS: BP 128/55
[2021-07-07] MEDS ORDERED: lactobacillus rhamnosus 10,000 MMU CELLS/CAPSULE PO SCH (20:00)
== END 2021-07-07 15:24 | DRG 189 ==
LOC: ER 12:19 → ED HOLD 17:50 → PCU 3S 06-30 05:18
PROVIDERS: ADMIT Internal Medicine; ATTEND Internal Medicine
PROC: 5A09357 Assistance with Respiratory Ventilation, Less than 24 Consecutive Hours, Continuous Positive Airway Pressure (ICD-10-PCS; 2021-06-28)
PROC: 5A09357 Assistance with Respiratory Ventilation, Less than 24 Consecutive Hours, Continuous Positive Airway Pressure (ICD-10-PCS; 2021-06-29)
PROC: 5A09357 Assistance with Respiratory Ventilation, Less than 24 Consecutive Hours, Continuous Positive Airway Pressure (ICD-10-PCS; 2021-06-30)
PROC: 0W9G3ZZ Drainage of Peritoneal Cavity, Percutaneous Approach (ICD-10-PCS; principal; 2021-07-01)
PROC: 5A09357 Assistance with Respiratory Ventilation, Less than 24 Consecutive Hours, Continuous Positive Airway Pressure (ICD-10-PCS; 2021-07-01)
PROC: 5A09357 Assistance with Respiratory Ventilation, Less than 24 Consecutive Hours, Continuous Positive Airway Pressure (ICD-10-PCS; 2021-07-02)
DX: J96.02 Acute respiratory failure with hypercapnia (principal); I21.4 Non-ST elevation (NSTEMI) myocardial infarction; K72.00 Acute and subacute hepatic failure without coma; K76.7 Hepatorenal syndrome; G93.41 Metabolic encephalopathy; I50.33 Acute on chronic diastolic (congestive) heart failure; N17.9 Acute kidney failure, unspecified; I13.0 Hypertensive heart and chronic kidney disease with heart failure and stage 1 through stage 4 chronic kidney disease, or unspecified chronic kidney disease; K76.6 Portal hypertension; N18.4 Chronic kidney disease, stage 4 (severe); R18.8 Other ascites; R44.3 Hallucinations, unspecified; E72.20 Disorder of urea cycle metabolism, unspecified; E66.2 Morbid (severe) obesity with alveolar hypoventilation; Z68.41 Body mass index [BMI] 40.0-44.9, adult; E87.2 Acidosis; J96.01 Acute respiratory failure with hypoxia; B18.2 Chronic viral hepatitis C; Z20.822 Contact with and (suspected) exposure to COVID-19; E11.22 Type 2 diabetes mellitus with diabetic chronic kidney disease; E78.5 Hyperlipidemia, unspecified; F12.90 Cannabis use, unspecified, uncomplicated; F32.A Depression, unspecified; E87.5 Hyperkalemia; F41.9 Anxiety disorder, unspecified; I25.10 Atherosclerotic heart disease of native coronary artery without angina pectoris; G47.00 Insomnia, unspecified; I27.81 Cor pulmonale (chronic); I50.810 Right heart failure, unspecified; D63.8 Anemia in other chronic diseases classified elsewhere; J44.9 Chronic obstructive pulmonary disease, unspecified; K74.60 Unspecified cirrhosis of liver; K76.0 Fatty (change of) liver, not elsewhere classified; Z79.4 Long term (current) use of insulin; Z87.891 Personal history of nicotine dependence; I25.2 Old myocardial infarction; Z90.710 Acquired absence of both cervix and uterus; Z88.8 Allergy status to other drugs, medicaments and biological substances; Z91.040 Latex allergy status; Z79.899 Other long term (current) drug therapy
CPT/HCPCS: 36415; 36600; 49083; 70450; 71045; 80048; 80053; 80061; 80305; 80320; 81001; 82140; 82803; 82948; 83036; 83735; 83880; 84100; 84132; 84484; 85018; 85025; 85610; 85730; 87081; 87088; 87635; 92508; 92616; 93005; 94640; 94660; 94760; 97110; 97116; 97161; 97530; 99285; C9803; G0378; J0610; J1650; J1815; J1940; J2270; J2354; J2405; J2765; J3490; P9047

== ENCOUNTER 2021-07-09 10:17 | Emergency (ER) | payer MEDICARE, MEDICAID ==
[~2021-07-09] VITALS: Ht 167.6 cm; Wt 118.1 kg
[~2021-07-09 10:17] MED LIST changes: +AMLO10TA13 PO; +INSU100I31 SQ; -INSU100V9 SQ; +LEVA15HF6 PO
[2021-07-09 11:18] VITALS: BP 140/60
[2021-07-09 12:40] LABS: CLARITY,URINE CLEAR (Clear); COLOR,URINE YELLOW (Yellow); GLUCOSE, URINE NEGATIVE (Neg); KETONES,URINE NEGATIVE (Neg); LEUKOCYTE ESTERASE ,URINE NEGATIVE (Neg); NITRITES, URINE NEGATIVE (Neg); OCCULT BLOOD,URINE SMALL (Neg); PROTEIN,URINE NEGATIVE (Neg); UROBILINOGEN,URINE 0.2 E.U/dL (0.2-1.0)
[2021-07-09 12:42] LABS: UA COLLECTION TYPE NON-SPECIFIED
[2021-07-09 12:45] LABS: BACTERIA,URINE 1+ /HPF (Neg); MUCUS STRANDS FEW /LPF (Neg); SQUAMOUS EPITHELIAL CELL,UR FEW /LPF (FEW); TRANSITIONAL EPI CELLS,URINE FEW /HPF; WBC,URINE 0-4 /HPF (0-4)
[2021-07-09 13:14] LABS: BASOPHILS % (AUTO) 0.7 % (0-1); EOSINOPHILS # (AUTO) 0.1 X10'3 (0-0.9); EOSINOPHILS % (AUTO) 2.1 % (0-6); HEMATOCRIT 32.2 % (35.0-45.0); HEMOGLOBIN 10.8 g/dl (12.0-16.0); LYMPHOCYTES # (AUTO) 0.6 X10'3 (1.1-4.8); LYMPHOCYTES % (AUTO) 8.2 % (21-51); MEAN CORPUSCULAR HGB CONC 33.5 g/dL (33.0-36.5); MEAN CORPUSCULAR VOLUME 92.7 FL (78-98); MEAN PLATELET VOLUME 8.5 FL (7.4-10.4); MONOCYTES # (AUTO) 0.5 X10'3 (0-0.9); MONOCYTES % (AUTO) 7.1 % (2-12); NEUTROPHILS # (AUTO) 5.7 X10'3 (1.8-7.7); NEUTROPHILS % (AUTO) 81.9 % (42-75); PLATELET COUNT 184 X10'3 (140-440); RED BLOOD COUNT 3.48 X10'6 (4.20-5.60); RED CELL DISTRIBUTION WIDTH 14.1 % (11.5-14.5)
[2021-07-09 13:30] LABS: ALANINE AMINOTRANSFERASE 27 U/L (12-78); ALBUMIN/GLOBULIN RATIO 0.9 (1.1-1.5); ALKALINE PHOSPHATASE 79 IU/L (46-116); ANION GAP 8 (8-16); ASPARTATE AMINO TRANSFERASE 32 U/L (10-37); BILIRUBIN,TOTAL 0.6 MG/DL (0.1-1.0); BLOOD UREA NITROGEN 65 MG/DL (7-18); BUN/CREATININE RATIO 26.5 (6.6-38.0); CALCIUM 8.6 MG/DL (8.5-10.1); CHLORIDE 104 MMOL/L (99-107); CREATININE 2.45 MG/DL (0.40-0.90); GLUCOSE 96 MG/DL (70-104); POTASSIUM 3.9 MMOL/L (3.5-5.1); SODIUM 142 MMOL/L (135-145); TOTAL CARBON DIOXIDE 29.9 MMOL/L (24-32); TOTAL PROTEIN 6.5 G/DL (6.4-8.2); eGFR 20 ML/MIN
[2021-07-09 13:34] LABS: LIPASE 193 U/L (73-393)
--- NOTE | 2021-07-09 14:22 | NUR ---
Patient changed of stool incontinence; fresh linens and new Purewick placed to suction.
--- NOTE | 2021-07-09 14:30 | NUR ---
Skin breakdown noted on coccyx approximately 1 inch in diameter. Mepilex to be placed.
[2021-07-09] MEDS ORDERED: furosemide 10 MG/1 ML 10ml inj IV ONE ×2 (16:40→17:25)
[2021-07-09] MEDS ORDERED: albumin (human) 25% 100ml IV 100 ML IV ONE (16:40)
--- NOTE | 2021-07-09 17:35 | NUR ---
Patient cleaned of fecal incontinence; Mepilex placed on area of skin breakdown over coccyx.
== END 2021-07-09 20:04 | disposition home or self-care (01) ==
LOC: ER 10:18
DX: R10.9 Unspecified abdominal pain (principal); Z20.822 Contact with and (suspected) exposure to COVID-19; R05.9 Cough, unspecified; R11.10 Vomiting, unspecified; I25.10 Atherosclerotic heart disease of native coronary artery without angina pectoris; I10 Essential (primary) hypertension; I25.2 Old myocardial infarction; J44.9 Chronic obstructive pulmonary disease, unspecified; E11.9 Type 2 diabetes mellitus without complications; F12.90 Cannabis use, unspecified, uncomplicated; Z98.891 History of uterine scar from previous surgery; Z90.710 Acquired absence of both cervix and uterus; Z91.040 Latex allergy status; Z88.8 Allergy status to other drugs, medicaments and biological substances; Z79.4 Long term (current) use of insulin; Z79.899 Other long term (current) drug therapy; Z98.890 Other specified postprocedural states
CPT/HCPCS: 36415; 49083; 74176; 80053; 81001; 83690; 84484; 85025; 85610; 87635; 93005; 96365; 96375; 99285; C9803; J1940; P9047

== ENCOUNTER 2021-07-21 08:19 | Emergency (ER) | payer MEDICARE, MEDICAID ==
[~2021-07-21] VITALS: Ht 396.2 cm; Wt 113.6 kg
[~2021-07-21 08:19] MED LIST changes: +LIDOcaine 1% W/epiNEPHrine 1:100,000 20ml vial ONE
[2021-07-21] MEDS ORDERED: albumin (human) 25% 100 ML IV solution IV ONE (08:30)
--- NOTE | 2021-07-21 10:39 | NUR ---
DR CHARLES AT BEDSIDE TO PERFORM PARACENTESIS. PAT SPOUSE AT BEDSIDE.
[2021-07-21 13:00] VITALS: BP 131/61
== END 2021-07-21 17:02 | disposition home or self-care (01) ==
LOC: ER 08:20
DX: R18.8 Other ascites (principal); R10.84 Generalized abdominal pain; I25.10 Atherosclerotic heart disease of native coronary artery without angina pectoris; I10 Essential (primary) hypertension; I25.2 Old myocardial infarction; J44.9 Chronic obstructive pulmonary disease, unspecified; E11.9 Type 2 diabetes mellitus without complications; F41.9 Anxiety disorder, unspecified; F32.A Depression, unspecified; F12.90 Cannabis use, unspecified, uncomplicated; Z90.710 Acquired absence of both cervix and uterus; Z98.890 Other specified postprocedural states; Z91.040 Latex allergy status; Z88.8 Allergy status to other drugs, medicaments and biological substances; Z79.4 Long term (current) use of insulin; Z79.899 Other long term (current) drug therapy
CPT/HCPCS: 49083; 96365; 99285; J3490; P9047

== ENCOUNTER 2021-08-05 08:08 | Day surgery (SDC) | payer MEDICAID, MEDICARE, OTHER ==
[2021-08-05] VITALS (9 sets, daily range): BP systolic 121–164; BP diastolic 57–83
[~2021-08-05] VITALS: Ht 167.6 cm; Wt 116.1 kg
[~2021-08-05 08:08] MED LIST changes: -LIDOcaine 1% W/epiNEPHrine 1:100,000 20ml vial ONE
[2021-08-05] MEDS ORDERED: LIDOcaine 1%/PF 5ML 10 MG/ML VIAL SQ ONE (08:55)
[2021-08-05] MEDS ORDERED: PANT-47 PO (08:59)
[2021-08-05] MEDS: albumin 25% 100mL bottle x 1 IV PRN ×3 (10:50→11:58)
--- NOTE | 2021-08-05 15:00 | NUR ---
After multiple calls to [facility], pt was picked up and taken back to [facility]. Pt tearful and pushed out in w/c by daughter.
== END 2021-08-05 15:00 ==
LOC: SSTAY O 08:08
PROVIDERS: ATTEND Radiology Diagnostic Radiology
DX: R18.8 Other ascites (principal); R14.0 Abdominal distension (gaseous); K74.60 Unspecified cirrhosis of liver; Z86.19 Personal history of other infectious and parasitic diseases; F12.90 Cannabis use, unspecified, uncomplicated; Z91.040 Latex allergy status; Z88.8 Allergy status to other drugs, medicaments and biological substances; Z79.899 Other long term (current) drug therapy
CPT/HCPCS: 49083; P9047

== ENCOUNTER 2021-08-19 08:59 | Day surgery (SDC) | payer OTHER ==
[2021-08-19] VITALS (14 sets, daily range): BP systolic 112–138; BP diastolic 56–70
[~2021-08-19] VITALS: Ht 167.6 cm; Wt 116.1 kg
[~2021-08-19 08:59] MED LIST changes: +LIDOcaine 1%/PF 5ML 10 MG/ML VIAL IJ ONE; +PANT-47 PO
[2021-08-19] MEDS ORDERED: ONDA4TAB12 PO (09:56)
[2021-08-19] MEDS ORDERED: MIDO2.5T14 PO (09:56)
[2021-08-19] MEDS ORDERED: CALC300T4 PO (09:56)
[2021-08-19] MEDS ORDERED: GABA300C PO (09:56)
[2021-08-19] MEDS ORDERED: POTA-197 PO (09:56)
[2021-08-19] MEDS ORDERED: ENOX30DI4 SQ (09:56)
[2021-08-19] MEDS ORDERED: LOPE2CAP PO (09:56)
[2021-08-19] MEDS ORDERED: SENN-263 PO (09:56)
[2021-08-19] MEDS ORDERED: BUDE0.5A11 INH (09:56)
[2021-08-19] MEDS ORDERED: SERT50TA PO (09:56)
[2021-08-19] MEDS ORDERED: ACET-1008 PO (09:56)
[2021-08-19] MEDS ORDERED: CLON-528 PO (09:56)
[2021-08-19] MEDS: albumin 25% 100mL bottle x 1 IV PRN ×2 (10:38→11:59)
== END 2021-08-19 14:47 ==
LOC: SSTAY O 08:59
PROVIDERS: ATTEND Radiology Vascular & Interventional Radiology
DX: R18.8 Other ascites (principal); R14.0 Abdominal distension (gaseous); K74.60 Unspecified cirrhosis of liver; I10 Essential (primary) hypertension; J44.9 Chronic obstructive pulmonary disease, unspecified; F41.9 Anxiety disorder, unspecified; F32.A Depression, unspecified; E11.10 Type 2 diabetes mellitus with ketoacidosis without coma; I25.10 Atherosclerotic heart disease of native coronary artery without angina pectoris; E66.01 Morbid (severe) obesity due to excess calories; Z68.41 Body mass index [BMI] 40.0-44.9, adult; Z86.19 Personal history of other infectious and parasitic diseases; Z90.710 Acquired absence of both cervix and uterus; Z98.890 Other specified postprocedural states; F12.90 Cannabis use, unspecified, uncomplicated; Z79.899 Other long term (current) drug therapy
CPT/HCPCS: 49083; J3490; P9047

== ENCOUNTER 2021-09-01 09:28 | Emergency (ER) | payer MEDICARE, MEDICAID ==
[~2021-09-01] VITALS: Ht 167.6 cm; Wt 114.5 kg
[~2021-09-01 09:28] MED LIST changes: +ACET-1008 PO; +BUDE0.5A11 INH; +CALC300T4 PO; +CLON-528 PO; +ENOX30DI4 SQ; -FLO110IN PO; +GABA300C PO; -LEVA15HF6 PO; -LIDOcaine 1%/PF 5ML 10 MG/ML VIAL IJ ONE; +LOPE2CAP PO; +MIDO2.5T14 PO; +ONDA4TAB12 PO; +POTA-197 PO; +SENN-263 PO; +SERT50TA PO
[2021-09-01 10:08] LABS: BASOPHILS % (AUTO) 0.7 % (0-1); EOSINOPHILS # (AUTO) 0.3 X10'3 (0-0.9); EOSINOPHILS % (AUTO) 4.3 % (0-6); HEMOGLOBIN 10.1 g/dl (12.0-16.0); LYMPHOCYTES # (AUTO) 0.5 X10'3 (1.1-4.8); MEAN CORPUSCULAR HEMOGLOBIN 29.4 PG (27.0-31.0); MEAN CORPUSCULAR HGB CONC 32.5 g/dL (33.0-36.5); MEAN CORPUSCULAR VOLUME 90.4 FL (78-98); MEAN PLATELET VOLUME 8.2 FL (7.4-10.4); MONOCYTES # (AUTO) 0.5 X10'3 (0-0.9); NEUTROPHILS # (AUTO) 5.4 X10'3 (1.8-7.7); PLATELET COUNT 175 X10'3 (140-440); RED BLOOD COUNT 3.43 X10'6 (4.20-5.60); RED CELL DISTRIBUTION WIDTH 14.4 % (11.5-14.5); WHITE BLOOD COUNT 6.7 X10'3 (4.5-11.0)
[2021-09-01 10:31] LABS: ALANINE AMINOTRANSFERASE 18 U/L (12-78); ALBUMIN 2.9 G/DL (3.4-5.0); ALBUMIN/GLOBULIN RATIO 0.6 (1.1-1.5); ALKALINE PHOSPHATASE 95 IU/L (46-116); ANION GAP 12 (8-16); ASPARTATE AMINO TRANSFERASE 17 U/L (10-37); BILIRUBIN,TOTAL 0.7 MG/DL (0.1-1.0); BLOOD UREA NITROGEN 52 MG/DL (7-18); BUN/CREATININE RATIO 18.6 (6.6-38.0); CALCIUM 8.7 MG/DL (8.5-10.1); CHLORIDE 106 MMOL/L (99-107); CREATININE 2.79 MG/DL (0.40-0.90); GLUCOSE 160 MG/DL (70-104); POTASSIUM 4.7 MMOL/L (3.5-5.1); SODIUM 141 MMOL/L (135-145); TOTAL CARBON DIOXIDE 23.4 MMOL/L (24-32); TOTAL PROTEIN 7.5 G/DL (6.4-8.2); eGFR 17 ML/MIN
[2021-09-01] MEDS ORDERED: albumin (human) 25% 100 ML IV solution IV ONE (13:00)
[2021-09-01 16:41] VITALS: BP 140/61
[2021-09-02] MEDS ORDERED: TRAZ-251 PO (11:54)
== END 2021-09-01 16:42 | disposition home or self-care (01) ==
LOC: ER 09:29
DX: R18.8 Other ascites (principal); R06.02 Shortness of breath; R14.0 Abdominal distension (gaseous); K42.9 Umbilical hernia without obstruction or gangrene; I12.9 Hypertensive chronic kidney disease with stage 1 through stage 4 chronic kidney disease, or unspecified chronic kidney disease; E11.22 Type 2 diabetes mellitus with diabetic chronic kidney disease; N18.9 Chronic kidney disease, unspecified; I25.2 Old myocardial infarction; J44.9 Chronic obstructive pulmonary disease, unspecified; F41.9 Anxiety disorder, unspecified; F32.A Depression, unspecified; F12.90 Cannabis use, unspecified, uncomplicated; Z90.710 Acquired absence of both cervix and uterus; Z98.890 Other specified postprocedural states; Z91.040 Latex allergy status; Z88.8 Allergy status to other drugs, medicaments and biological substances; Z79.4 Long term (current) use of insulin; Z79.899 Other long term (current) drug therapy
CPT/HCPCS: 36415; 49083; 80053; 82140; 85025; 85610; 96365; 96366; 99285; P9047

== ENCOUNTER 2021-09-06 08:35 | Day surgery (SDC) | payer MEDICARE, MEDICAID ==
[~2021-09-06] VITALS: Ht 167.6 cm; Wt 119.4 kg
[~2021-09-06 08:35] MED LIST changes: -AMLO10TA13 PO; -CALC300T4 PO; -DOCU-148 PO; -ENOX30DI4 SQ; -LOPE2CAP PO; -MIDO2.5T14 PO; -SENN-263 PO; +TRAZ-251 PO; -TRAZ150T78 PO
[2021-09-06] MEDS ORDERED: LIDOcaine 1%/PF 5ML 10 MG/ML VIAL SQ ONE (08:55)
[2021-09-06 09:00] VITALS: BP 137/65
[2021-09-06] MEDS ORDERED: albumin 25% 100mL bottle x 1 IV PRN (09:00)
[2021-09-06] MEDS ORDERED: normal saline 1000ml 1,000 ML IV PRN (09:00)
[2021-09-06 09:34] VITALS: BP 154/99
[2021-09-06 09:50] VITALS: BP 134/65
[2021-09-06 10:05] VITALS: BP 131/68
== END 2021-09-06 10:17 | disposition home or self-care (01) ==
LOC: SSTAY O 08:35
PROVIDERS: ATTEND Radiology Vascular & Interventional Radiology
DX: R18.8 Other ascites (principal); R14.0 Abdominal distension (gaseous); I10 Essential (primary) hypertension; J44.9 Chronic obstructive pulmonary disease, unspecified; F41.9 Anxiety disorder, unspecified; F32.A Depression, unspecified; E11.10 Type 2 diabetes mellitus with ketoacidosis without coma; K74.60 Unspecified cirrhosis of liver; I25.10 Atherosclerotic heart disease of native coronary artery without angina pectoris; I27.81 Cor pulmonale (chronic); K76.7 Hepatorenal syndrome; F12.90 Cannabis use, unspecified, uncomplicated; E66.01 Morbid (severe) obesity due to excess calories; Z68.41 Body mass index [BMI] 40.0-44.9, adult; Z86.19 Personal history of other infectious and parasitic diseases; Z90.710 Acquired absence of both cervix and uterus; Z98.890 Other specified postprocedural states; Z79.899 Other long term (current) drug therapy; Z88.8 Allergy status to other drugs, medicaments and biological substances; Z91.040 Latex allergy status
CPT/HCPCS: 49083